=== PATIENT | female | born 1950 | race Caucasian/White ===

== ENCOUNTER → 2018-10-08 09:34 | Outpatient (CLI) | payer MEDICARE, OTHER, SELFPAY ==
--- NOTE | 2018-10-08 09:42 | CT_ITS ---
CT abdomen pelvis wo con CLINICAL HISTORY: Anterior abdominal pain TECHNIQUE: Axial images obtained with sagittal and coronal reformats. All CT scans at the facility use one or more dose reduction, viz: automated exposure control, ma/kV adjustment per patient size (including targeted exams where dose is matched to indication, i.e. head), or iterative reconstruction technique. COMPARISON: CT scan abdomen pelvis with IV and oral contrast 03/06/2013 PROCEDURE: Oral Contrast:None IV Contrast: 0 ml IV Isovue 370 was injected intravenously. FINDINGS: Lung bases: Clear, there is no pleural fluid. There is mild generalized cardiomegaly ABDOMEN: Liver: No masses or biliary dilatation. Gallbladder: Postcholecystectomy Pancreas: No masses or peripancreatic fluid collections. Spleen: Normal size, there are few scattered tiny calcifications noted. Adrenals: Unremarkable Kidneys/ureters: No masses. No renal calculi. No hydronephrosis. No perinephric fluid collections. No ureteral dilatation or obvious ureteral calculi. Stomach bowel: The stomach and small bowel appear grossly normal. There is a moderately large amount stool in the cecum ascending colon and transverse colon. Peritoneum: No abnormal fluid collections. No obvious inflammatory changes. Lymph nodes: No enlarged lymph nodes apparent. Vasculature: No evidence of abdominal aortic aneurysm. No retroperitoneal hemorrhage evident. Bones: There are moderate degenerative changes lower thoracic spine and prominent hypertrophic facet changes lower lumbar spine. PELVIS: Reproductive: Post hysterectomy Bladder: Moderately distended with urine and appearing normal. There is no free fluid in the pelvis. Appendix: I do not definitely identify the appendix but there are no pericecal inflammatory changes. IMPRESSION: Moderately large amount of right-sided stool, no other significant abdominal or pelvic pathology identified.
[2018-10-08 09:58] LABS: Basophils % 0.5 % (0.1-2.0); Eosinophils # 0.2 K/mm3 (0.0-0.4); Eosinophils % 2.3 % (0.1-12.0); Hematocrit 45.7 % (37.0-47.0); Hemoglobin 14.6 g/dL (12.2-16.2); Lymphocytes # 2.2 K/mm3 (0.7-4.5); Lymphocytes % 32.4 % (10-50); Mean Corpuscular Hemoglobin 27.6 pg (27.0-31.2); Mean Corpuscular Volume 86.4 fl (81-99); Mean Platelet Volume 7.3 fl (7.4-10.4); Monocytes # 0.4 K/mm3 (0.1-1.0); Neutrophils % 58.9 % (37.0-80.0); Platelet Count 236 K/mm3 (142-424); Red Blood Count 5.29 M/mm3 (4.20-5.40); Red Cell Distribution Width 12.5 % (11.5-17.5); White Blood Count 6.8 K/mm3 (4.8-10.8)
[2018-10-08 10:31] LABS: Blood Urea Nitrogen 18 mg/dL (7-18); Carbon Dioxide 32 mmol/L (21.0-32.0); Chloride 103 mmol/L (98-107); Creatinine,Serum 0.94 mg/dL (0.55-1.02); Estimated Glomerular Filt Rate 60 ml/min (>60); GFR (African American) 72 ML/MIN (>60); Glucose 97 mg/dL (74-106); Sodium 140 mmol/L (136-145)
== END ==
PROVIDERS: PCP Internal Medicine; Visit Provider Internal Medicine
DX: R10.9 Unspecified abdominal pain (principal)
CPT/HCPCS: 74176; 80048; 85025

== ENCOUNTER 2019-03-12 09:53 | Day surgery (SDC) | payer MEDICARE, OTHER, SELFPAY ==
[2019-03-11 16:25] VITALS: BMI 30.7
[2019-03-12] VITALS (7 sets, daily range): BP systolic 93–117; BP diastolic 58–76; PULSE 53–69; RESP 16–18; TEMP 36.4–36.6; O2SAT 94–99
--- NOTE | 2019-03-12 11:13 | HMH.ANESCL ---
[facility] Anesthesia Checklist - Patient Identification Patient Identification: Arm Band, Verbal (Name & ) - Structural Data Admitted From: Home Planned Operative Procedure/s: Colonoscopy Consent for Planned Operative Procedure(s) Verified: Yes Verified Documents: Surgical Consent, History and Physical - NPO Status Verified Time NPO: 00:00 - Additional verifications Patient : No Anesthesia Reactions: Yes (PONV) - Airway Assessment C-Spine Mobility Assessed: Yes TMJ Mobility Assessed: Yes Dentition: Partials (lower) - Neurological Assessment Level of Consciousness: Awake, Alert, Appropriate, Follows Commands Hx Seizures: No Numbness or tingling in extremities: No - Anesthesia Plan Anesthesia Risk discussed: Yes Anesthesia Plan: Verified ASA Class: II Anesthesia Type: MAC [facility] History I have reviewed the patient's past medical history: Yes Medical History: Reports:: Gastroesophageal Reflux Disease(GERD), Hyperlipidemia, Hypertension Denies:: Diabetes Mellitus Type 1, Diabetes Mellitus Type 2, Internal Pacemaker, Lung Disease, Seizures *Have you ever received a pneumonia vaccine?: No *Have you received a flu vaccine this season?: No (NA) Other Medical History: Reports: Hypothyroidism Comment:: obesity, melanoma Other Surgeries: Yes: Cholecystectomy, Colonoscopy, Hernia Repair, Hysterectomy-Total, Other. No: Pacemaker Amputation: No Fractures: No - *Social History Smoking Status: Never smoker Alcohol Intake: never Substance Use Type: denies use *Occupational Status:: employed *Travel in the last 8 weeks: None (NA) Family Hx:: Other (NA)
--- NOTE | 2019-03-12 12:12 | HMH.SCOPE ---
- Procedure: Date: 03/12/19 Procedure Performed:: Total colonoscopy with multiple polypectomy by snare and biopsy forceps Indications:: Patient is a pleasant 68-year-old white female. I had performed initial screening colonoscopy on her in 2016 and she had at least one tubular adenoma. She does have a vague family history of colon cancer with her paternal aunt having colon cancer. She is without complaints of her symptoms at this time. Performing Provider:: Rex Paz MD Referring Provider:: None Sedation:: Propofol Procedure:: Consent was obtained and patient was taken to endoscopy procedure room. She was positioned in lateral decubitus position. Adequate intravenous sedation was achieved with anesthesia titration of propofol. Variable stiffness Olympus colonoscope was inserted via the anus and advanced to the cecum. Advancement into the cecum was somewhat difficult due to some floppiness and redundancy of the sigmoid colon. Ultimately the ileocecal valve and appendiceal orifice were identified. Within the cecum there was a small diminutive polyp which required retroflexion for visualization. This was removed using cold cutting snare and cold biopsy forceps. There is a tiny diminutive polyp (possible) in the periappendiceal location removed with cold biopsy forceps. Colonoscope was withdrawn through the colon. In the ascending colon there was a subtle polyp removed. The distal transverse colon there was a subtle polyp possibly consistent with lymphoid lesion which was removed with cold snare. However, distal to this there was what appeared to be an adenomatous polyp removed with cold cutting snare. In the rectosigmoid region there were several hyperplastic appearing polyps which were removed with cold biopsy forceps. There is a single polyp within the rectum which appeared to be likely hyperplastic removed with cold biopsy forceps. Retroflexion revealed nonpathologic internal hemorrhoids. Colonoscope was withdrawn. Findings:: Polyps Recommendations:: Likely repeat colonoscopy 3 years Complications:: None Estimated blood obtained (mL): 3
== END 2019-03-12 12:55 | disposition home or self-care (01) ==
LOC: OUTP 09:57
PROVIDERS: PCP Internal Medicine; Visit Provider Surgery
PROC: 0DJD8ZZ Inspection of Lower Intestinal Tract, Via Natural or Artificial Opening Endoscopic (ICD-10-PCS; principal; 2019-03-12 11:00)
DX: Z12.11 Encounter for screening for malignant neoplasm of colon (principal); Z87.19 Personal history of other diseases of the digestive system; K63.5 Polyp of colon
CPT/HCPCS: 45380; 45385; 88305

== ENCOUNTER → 2019-06-18 07:59 | Outpatient (POV) | payer MEDICARE, OTHER, SELFPAY | PROVIDERS: Visit Provider Dermatology | DX: Z00.00 Encounter for general adult medical examination without abnormal findings (principal) ==

== ENCOUNTER → 2019-09-18 13:14 | Outpatient (POV) | payer MEDICARE, OTHER, SELFPAY | DX: Z00.00 Encounter for general adult medical examination without abnormal findings (principal) ==

== ENCOUNTER 2020-06-12 14:44 | Emergency (ER) | payer MEDICARE, OTHER, SELFPAY ==
--- NOTE | 2020-06-12 14:50 | XR_ITS ---
PROCEDURE: XR KNEE LT 3V CLINICAL INDICATION: PAIN COMPARISON: No exams were available for comparison FINDINGS: No fracture or dislocation. No lytic or blastic change. There is normal mineralization. The joint spaces are well-preserved. No significant degenerative/arthritic changes. No erosive changes evident. Other findings:None. IMPRESSION: No acute findings. Dictated by: Doc Izaguirre MD 06/12/2020 15:45 Doc Izaguirre MD in [place] 06/12/2020 15:45
[2020-06-12 14:57] VITALS: BP 134/72; PULSE 72; RESP 20; O2SAT 98; BMI 33.4
--- NOTE | 2020-06-12 15:07 | HMH.EDUTC ---
[facility] [place] Disposition Clinical Impression: Right knee sprain Qualifiers: Encounter type: initial encounter Involved ligament of knee: unspecified ligament Qualified Code(s): S83.91XA - Sprain of unspecified site of right knee, initial encounter Disposition: Home, Self-Care Condition on Discharge: Good Instructions: DI for Knee Sprain, Knee Sprain, How to Use a Knee Immobilizer, How to Choose and Use a Walker, How To Perform RICE (Rest, Ice, Compress, Elevate) Additional Instructions: *weight bearing as tolerated use walker/crutches for ambulation and walking *RICE, Rest the extremity, Ice 15-20 minutes 3-4 times daily, Compress- wear the channing wrap as discussed as much as possible to help reduce swelling and pain, Elevate the extremity when at rest *Channing wrap is for support and help control swelling, use it except in the shower. Be sure that is not to tight but not to loose either *Elevate when resting *Ibuprofen every 6-8 hours as needed for pain an inflammation. If need something more can take Tylenol in between doses of Ibuprofen to help Immediately follow up with your family doctor for new or worsening of symptoms, or no noticeable improvement over the next 3-[address] Epstein office for appointment for further evaluation and treatment of knee sprain/pain Return if needed Straight to ER If any life threatening symptoms Referrals: Jesus Pollack [Primary Care Provider] - As needed Nighat Epstein MD [Physician] - As needed (Call office for appointment) Time of Disposition: 15:51 Medical Decision Making - Byron Inquiry Pt receiving controlled substance: No Byron was queried for this patient: No Vital Signs: 06/12/20 14:57 Pulse Rate [Right Brachial] 72 Respiratory Rate 20 Blood Pressure [Right Arm] 134/72 Blood Pressure Mean [Right Arm] 92 Blood Pressure Source [Right Arm] Automatic Cuff Blood Pressure Position [Right Arm] Sitting 02 Sat by Pulse Oximetry 98 Oxygen Delivery Method Room Air Orders (Tests/Meds): ORDERS Category Date Time Status XR knee LT 3V Stat Exams 06/12/20 14:50 Taken - Radiology Data #1 Image(s): Knee Image Reviewed: Yes I reviewed the patient's radiology image Preliminary Findings: No Fracture Seen [facility] [place] HPI - General Stated complaint: AO [id number] left knee home accident Time Seen by Provider: 06/12/20 15:07 Mode of Arrival: Ambulatory Source of Information: Patient Limitations: No Limitations Description of Symptoms (Recalled from Triage Doc. by RN): PATIENT C/O POSTERIOR LEFT KNEE PAIN. SHE STATES SHE HAS BEEN HAVING SOME PAIN IN THAT KNEE, HOWEVER IT BECAME WORSE TODAY WHILE WALKING DOWN STEPS HEENT Symptoms (Recalled from RN notes): No Resp Symptoms (Recalled from RN notes): No Skin Symptoms (Recalled from RN notes): No MS Symptoms (Recalled from RN notes): Yes Functional Status (Recalled from RN notes): WNL - History of Present Illness Provider Complaint: Patient states that she has been having some pain on and off in her left knee area and feeling like it is catching at times on and off for the last week States that she was walking down the steps earlier and felt like something tore or give out States that ever since when she walks she feels like her knee is going to give out and hurts when she puts her weight down on it Denies known injury - Related Data Home Medications Medication Instructions Recorded Confirmed levothyroxine 88 mcg capsule 88 mcg PO DAILY 02/01/19 06/12/20 omeprazole 20 mg capsule,delayed 20 mg PO DAILY 02/01/19 06/12/20 release potassium chloride 10 mEq 10 meq PO DAILY 02/01/19 06/12/20 capsule,extended release quinapril 40 mg tablet 40 mg PO DAILY 02/01/19 06/12/20 triamterene 37.5 1 tab PO DAILYP PRN 02/01/19 06/12/20 mg-hydrochlorothiazide 25 mg tablet Allergies Allergy/AdvReac Type Severity Reaction Status Date / Time apple [APPLE] Allergy Unknown HIVES, Verified 03/29/19 10:32 RESP. banana [BANANA] Aller
[2020-06-12 16:04] VITALS: BP 134/72; PULSE 72; RESP 20; TEMP 36.7; O2SAT 98
== END 2020-06-12 16:06 | disposition home or self-care (01) ==
PROVIDERS: Emergency Provider Nurse Practitioner; PCP Internal Medicine
DX: S83.92XA Sprain of unspecified site of left knee, initial encounter (principal); K21.9 Gastro-esophageal reflux disease without esophagitis; X50.1XXA Overexertion from prolonged static or awkward postures, initial encounter; Y92.019 Unspecified place in single-family (private) house as the place of occurrence of the external cause; E78.5 Hyperlipidemia, unspecified; I10 Essential (primary) hypertension; E03.9 Hypothyroidism, unspecified; Z88.2 Allergy status to sulfonamides
CPT/HCPCS: 29505; G0463; 73562; 99202

== ENCOUNTER 2020-09-17 09:30 | Outpatient (RCR) | payer MEDICARE, OTHER, SELFPAY | END 2020-09-17 09:35 | disposition home or self-care (01) | LOC: PT 09:30 | PROVIDERS: PCP Internal Medicine; Visit Provider Orthopaedic Surgery | DX: M25.562 Pain in left knee (principal); Z96.652 Presence of left artificial knee joint | CPT/HCPCS: 97010; 97014; 97016; 97110; 97140; 97163; 97164; 97530; G0283 ==

== ENCOUNTER → 2021-01-11 12:10 | Outpatient (CLI) | payer MEDICARE, OTHER, SELFPAY ==
--- NOTE | 2021-01-11 12:22 | CT_ITS ---
PROCEDURE: CT HEAD/BRAIN WO/W CON CLINICAL INDICATION: VISUAL CHANGES,VERTIGO COMPARISON: No exams were available for comparison TECHNIQUE: IV Contrast: 100ML Isovue 370 Axial images obtained. All CT scans at the facility use one or more dose reduction, viz: automated exposure control, ma/kV adjustment per patient size (including targeted exams where dose is matched to indication, i.e. head), or iterative reconstruction technique. FINDINGS: No midline shift, mass effect, intracranial hemorrhage, hydrocephalus, or extra-axial fluid collection is evident. No enhancing lesion is evident. The calvarium has an unremarkable appearance. No mastoid effusion. No sinus air-fluid level. There is leftward nasal septal deviation. There is a nonspecific 5 mm calcific density within the right nasal canal anteriorly. This could be related to a foreign body or calcification of the turbinates. Direct visualization may provide further evaluation. IMPRESSION: 1. No acute intracranial findings. 2. Foreign body versus soft tissue calcification in the right nasal canal anteriorly Dictated by: Doc Izaguirre MD 01/11/2021 13:31 Doc Izaguirre MD in [facility] 01/11/2021 13:31
[2021-01-11 12:40] LABS: Blood Urea Nitrogen 14 mg/dl (7-17); Estimated Glomerular Filt Rate 55 ml/min (>60); GFR (African American) 67 ML/MIN (>60)
== END ==
PROVIDERS: Visit Provider Internal Medicine
DX: R42 Dizziness and giddiness (principal); H53.9 Unspecified visual disturbance
CPT/HCPCS: 36415; 70470; 82565; 84520; Q9967

== ENCOUNTER → 2021-01-18 08:42 | Outpatient (CLI) | payer MEDICARE, OTHER, SELFPAY ==
--- NOTE | 2021-01-18 | CA_ITS ---
APPROVED REPORT [employer] Manager: RFAAEL Laterality: Bilateral Study Quality: Excellent Risk Factors Hypertension: Hyperlipidemia spontaneous visual disturbance of tunnel vision with near syncope, resolved immediately Medications Aspirin Doppler Spectral Velocity Analysis ECA (R) 95.10/12.90 cm/s ECA (L) 86.00/17.20 cm/s dICA (R) 67.70/27.40 cm/s dICA (L) 74.10/30.70 cm/s Riya (R) 65.10/25.70 cm/s Riya (L) 53.90/21.00 cm/s pICA (R) 62.50/24.80 cm/s pICA (L) 68.80/18.70 cm/s dCCA (R) 81.40/24.00 cm/s dCCA (L) 82.30/23.10 cm/s pCCA (R) 85.70/17.30 cm/s pCCA (L) 86.50/21.40 cm/s Vert (R) 32.70/11.60 cm/s Vert (L) 35.30/14.10 cm/s ICA/CCA 0.82 ICA/CCA 0.90 Findings Duplex evaluation demonstrates antegrade flow of the bilateral Vertebral Arteries. Duplex evaluation demonstrates stenosis of the right proximal internal carotid artery <20% with PSV <140 cm/sec, EDV <100 cm/sec, and IC/CC Ratio <4.0. Duplex evaluation demonstrates stenosis of the left proximal internal carotid artery <20% with PSV <140 cm/sec, EDV <100 cm/sec, and IC/CC Ratio <4.0. Conclusion Duplex evaluation demonstrates antegrade flow of the bilateral Vertebral Arteries. Duplex evaluation demonstrates stenosis of the right proximal internal carotid artery <20% with PSV <140 cm/sec, EDV <100 cm/sec, and IC/CC Ratio <4.0. Duplex evaluation demonstrates stenosis of the left proximal internal carotid artery <20% with PSV <140 cm/sec, EDV <100 cm/sec, and IC/CC Ratio <4.0. Electronically signed by : Doc Izaguirre MD 01/18/2021 15:55:13
== END ==
PROVIDERS: PCP Internal Medicine; Visit Provider Internal Medicine
DX: R42 Dizziness and giddiness (principal)
CPT/HCPCS: 93880

== ENCOUNTER → 2021-03-02 07:42 | Outpatient (CLI) | payer MEDICARE, OTHER, SELFPAY ==
--- NOTE | 2021-03-02 07:43 | CA_ITS ---
APPROVED REPORT EXAM: Comprehensive 2D, Doppler, and color-flow Echocardiogram Program Aide Group Work: Annia Morales, MATILDA, RVS Ht: 5 ft 5 in Wt: 214lbs BSA: 2.04 BP: 110/68 mmHg Indications: headaches, dizziness, HTN, HLD, Family hx-cad, TIA 2D Dimensions Aortic Root 2.92 cm LA Volume 37.60 mL Left Atrium 3.45 cm LA Volume Index 18.40 mL/m2 (M/F) 16-34 LVOT 1.92 cm (M/F) 1.5-2.5 M-Mode Dimensions RVDd 3.31 cm (0.9-2.6) LA Diam 3.32 cm (1.9-4.0) LVDd 5.09 cm (3.5-5.7) Ao Diam 3.09 cm (2.0-3.7) LVDs 3.12 cm (3.5-5.7) IVSd 1.03 cm (0.6-1.1) PWd 0.87 cm (0.6-1.1) EF (Teich) 68.80% EPSs 0.84 cm FS 38.70% EDV (Teich) 123.20 mL TAPSE 2.02 (<1.7) ESV (Teich) 38.50 mL LV Diastology E Decel Time 310.00 (160-240 msec) E/A Ratio 0.63 MED E' 8.60 (< 7 cm/sec) MED A' 11.60 cm/s E'/MED E' Ratio 6.07 (>14) LAT E' 8.70 (<10 cm/sec) LAT A' 8.20 cm/s E/LAT E' Ratio 6.00 (>14) Aortic Valve LVOT Max 107.00 (70-110 cm/s) LVOT VTI 22.09 cm AoV Peak Jaime. 162.00 (50-130 cm/s) AI PHT 495.00 ms AO Peak GR. 10.50 mmHg AO Mean GR. 5.90 (<5 mmHg) AO VTI 35.14 (18-25 cm) BAKARI (VTI) 1.82 (2.5-4.5 cm2) Mitral Valve MV A Velocity 83.00 (40-130 cm/s) E/A Ratio 0.63 MV Decel. Time 310.00 (160-240 ms) Pulmonary Valve PV Peak Velocity 78.00 (50-150 cm/s) Tricuspid Valve TR P. Velocity 216.00 cm/s RAP Estimate 10.00 mmHg RVSP 28.60 mmHg Left Ventricle Left atrium is mildly enlarged, left ventricle is normal size, mild concentric left ventricular hypertrophy, visually estimated ejection fraction 55% with no regional wall motion abnormality, grade 1 diastolic dysfunction seen without tissue Doppler evidence of raise left atrial pressure. Right Ventricle Right atrium and right ventricle are normal size and contractility. Aortic Valve Aortic valve is minimally thickened and fibrosed, there is no aortic stenosis, there is trace aortic insufficiency. Mitral Valve Mitral valve is grossly normal, there is trace mitral regurgitation. Tricuspid Valve Tricuspid grossly normal, there is trace tricuspid regurgitation, tricuspid regurgitation jet velocity is inadequate for calculation of the right ventricular systolic pressure. Pulmonic Valve Pulmonic valve is poorly visualized. Great Vessels Aortic root is normal size. Pericardium No significant pericardial effusion noted. Conclusion 1. Mildly low left atrium, normal left ventricular size, mild concentric left ventricular hypertrophy, visually estimated ejection fraction 55% with no regional wall motion abnormality, grade 1 diastolic dysfunction seen without tissue Doppler evidence of raise left atrial pressure. 2. Minimally thickened and calcified aortic valve without aortic stenosis, there is trace aortic insufficiency. 3. Trace mitral and tricuspid regurgitation. 4. No significant pericardial effusion noted. Electronically signed by : German Martin, 03/02/2021 19:09:00
--- NOTE | 2021-03-02 07:49 | MR_ITS ---
PROCEDURE: MR HEAD/BRAIN WO CON CLINICAL INDICATION: visual disturbance with unilateral ALEXANDRA Nausea. 2 episodes in 2 months. Hx migraines. COMPARISON: CT CT HEAD/BRAIN WO/W CON from 01/11/2021 TECHNIQUE: Routine multiplanar multi echo sequences are performed without gadolinium enhancement. FINDINGS: No midline shift, mass effect, intracranial hemorrhage, or hydrocephalus is evident. No evidence of acute infarction. No restricted diffusion. The cerebellopontine angles, cerebellum, and brainstem have an unremarkable appearance. The pituitary, optic chiasm, corpus callosum, the and craniocervical junction are unremarkable. There is a small T2 hyperintensity in the right frontal parietal junction nonspecific measuring approximately 5 mm. This does not restricted diffusion. The hippocampal gyri and temporal horns are symmetric. No mastoid effusion or sinus air-fluid level. IMPRESSION: No acute intracranial findings. Nonspecific small T2 white matter hyperintensity in the right frontal parietal junction which could be due to small gliotic focus from microangiopathic changes. Dictated by: Doc Izaguirre MD 03/03/2021 11:42 Doc Izaguirre MD in [place] 03/03/2021 11:42
--- NOTE | 2021-03-02 07:49 | MR_ITS ---
PROCEDURE: MR ANGIO HEAD WO CON CLINICAL INDICATION: visual dist with headache Nausea. 2 episodes in 2 months. Hx migraines. COMPARISON: No exams were available for comparison TECHNIQUE: 3D [id number] images obtained without contrast with multi slab reformats FINDINGS: No aneurysm, AVM, or major intracranial occlusive process apparent. Single-shot MRV shows no obvious sagittal sinus thrombosis. IMPRESSION: Negative MRA of brain Dictated by: Doc Izaguirre MD 03/03/2021 11:46 Doc Izaguirre MD in [place] 03/03/2021 11:46
== END ==
PROVIDERS: PCP Internal Medicine; Visit Provider Specialist
DX: H53.9 Unspecified visual disturbance (principal); R51.9 Headache, unspecified; E78.5 Hyperlipidemia, unspecified; Z82.49 Family history of ischemic heart disease and other diseases of the circulatory system; I10 Essential (primary) hypertension; R60.0 Localized edema
CPT/HCPCS: 70544; 70551; 93306

== ENCOUNTER → 2021-03-22 12:10 | Outpatient (CLI) | payer MEDICARE, OTHER, SELFPAY ==
--- NOTE | 2021-03-22 | ECG_ITS ---
APPROVED REPORT Exam: Resting ECG HR:57 bpm ECG Measurements Heart Rate 57 AXES NY 164 P 65 QRSd 80 QRS -41 QT 422 T -11 QTc 410 Conclusion Sinus bradycardia Left axis deviation Low voltage QRS Late r wave progression - unchanged Abnormal ECG Electronically signed by : Esteban Adame, 03/23/2021 08:19:22
== END ==
PROVIDERS: PCP Internal Medicine; Visit Provider Nurse Practitioner Family
DX: R51.9 Headache, unspecified (principal); H53.9 Unspecified visual disturbance
CPT/HCPCS: 93005; 93225; 93226

== ENCOUNTER → 2021-04-30 14:11 | Outpatient (CLI) | payer MEDICARE, OTHER, SELFPAY ==
--- NOTE | 2021-04-30 14:17 | XR_ITS ---
PROCEDURE INFORMATION: Exam: XR Lumbosacral Spine Exam date and time: 04/30/2021 2:17 PM Age: 70 years old Clinical indication: Patient HX: Low back pain with RT hip sciatica TECHNIQUE: Imaging protocol: XR of the lumbosacral spine. Views: 4 or 5 views. COMPARISON: ABDPELWO CT abdomen pelvis wo con 10/08/2018 10:13 AM FINDINGS: Bones/joints: There is loss of disc space height at L5-S1. There is facet joint hypertrophy in the lower lumbar spine. There is no subluxation or fracture. Soft tissues: Right upper quadrant surgical clips. IMPRESSION: 1. Degenerative changes. If radicular symptoms persist, a follow-up nonemergent MRI should be performed. 2. There is no subluxation or fracture.
--- NOTE | 2021-04-30 14:17 | XR_ITS ---
PROCEDURE INFORMATION: Exam: XR Pelvis Exam date and time: 04/30/2021 2:17 PM Age: 70 years old Clinical indication: Hip pain; Right hip; Additional info: Low back pain, sciatica RT, bilateral hip pain TECHNIQUE: Imaging protocol: XR pelvis. Views: 1 or 2 view. COMPARISON: ABDPELWO CT abdomen pelvis wo con 10/08/2018 10:13 AM FINDINGS: Bones/joints: There is mild loss of articular cartilage in the hips bilaterally where there are marginal osteophytes. There also degenerative changes of the sacroiliac joints. There is no acute fracture. Soft tissues: There are surgical clips in the right proximal thigh. IMPRESSION: No fracture.
== END ==
PROVIDERS: PCP Internal Medicine; Visit Provider Internal Medicine
DX: M54.5 Low back pain (principal); M54.31 Sciatica, right side; M25.552 Pain in left hip; M25.551 Pain in right hip
CPT/HCPCS: 72110; 72170

== ENCOUNTER → 2021-06-18 08:44 | Outpatient (CLI) | payer MEDICARE, OTHER, SELFPAY ==
--- NOTE | 2021-06-18 09:05 | ECG_ITS ---
APPROVED REPORT Exam: Resting ECG HR:58 bpm ECG Measurements Heart Rate 58 AXES OK 162 P 21 QRSd 84 QRS -25 QT 424 T -10 QTc [address] & T wave abnormality, consider anterolateral ischemia Abnormal ECG Electronically signed by : Esteban Adame MD 06/18/2021 10:54:16
[2021-06-18 09:20] LABS: Basophils % 0.6 % (0.1-2.0); Eosinophils # 0.1 K/mm3 (0.0-0.4); Eosinophils % 1.6 % (0.1-12.0); Hematocrit 46.4 % (37.0-47.0); Lymphocytes # 2.4 K/mm3 (0.7-4.5); Lymphocytes % 31.7 % (10-50); Mean Corpuscular HGB Conc 32.3 g/dL (31.8-35.4); Mean Corpuscular Hemoglobin 28.6 pg (27.0-31.2); Mean Corpuscular Volume 88.6 fl (81-99); Mean Platelet Volume 6.9 fl (7.4-10.4); Monocytes # 0.4 K/mm3 (0.1-1.0); Monocytes % 5.8 % (1.7-9.3); Neutrophils # 4.6 K/mm3 (1.8-7.8); Neutrophils % 60.3 % (37.0-80.0); Platelet Count 249 K/mm3 (142-424); Red Blood Count 5.23 M/mm3 (4.20-5.40); Red Cell Distribution Width 12.6 % (11.5-17.5); White Blood Count 7.6 K/mm3 (4.8-10.8)
[2021-06-18 10:29] LABS: Chloride 101 mmol/L (98-107)
[2021-06-18 10:30] LABS: Potassium 4.1 mmoL/L (3.5-5.1); Sodium 141 mmol/L (136-145)
[2021-06-18 10:32] LABS: Blood Urea Nitrogen 14 mg/dl (7-17); Estimated Glomerular Filt Rate 62 ml/min (>60); GFR (African American) 75 ML/MIN (>60)
[2021-06-18 10:33] LABS: Anion Gap 12.1 mEq/L (5-15); Calcium 9.3 mg/dl (8.4-10.2); Carbon Dioxide 32 mmol/L (22.0-30.0); Glucose 99 mg/dl (74-100)
== END ==
PROVIDERS: Visit Provider Orthopaedic Surgery
DX: Z01.818 Encounter for other preprocedural examination (principal)
CPT/HCPCS: 36415; 80048; 85025; 93005

== ENCOUNTER → 2021-09-21 16:34 | Outpatient (CLI) | payer MEDICARE, OTHER, SELFPAY ==
[2021-09-21 17:02] LABS: Basophils % 0.4 % (0.1-2.0); Eosinophils # 0.2 K/mm3 (0.0-0.4); Eosinophils % 2.4 % (0.1-12.0); Hematocrit 43.3 % (37.0-47.0); Hemoglobin 14.1 g/dL (12.2-16.2); Lymphocytes # 2.1 K/mm3 (0.7-4.5); Lymphocytes % 30.9 % (10-50); Mean Corpuscular HGB Conc 32.7 g/dL (31.8-35.4); Mean Corpuscular Hemoglobin 28.4 pg (27.0-31.2); Mean Platelet Volume 8.7 fl (7.4-10.4); Monocytes # 0.4 K/mm3 (0.1-1.0); Monocytes % 5.9 % (1.7-9.3); Neutrophils # 4.1 K/mm3 (1.8-7.8); Neutrophils % 60.5 % (37.0-80.0); Platelet Count 274 K/mm3 (142-424); Red Blood Count 4.97 M/mm3 (4.20-5.40); Red Cell Distribution Width 12.4 % (11.5-17.5); White Blood Count 6.8 K/mm3 (4.8-10.8)
[2021-09-21 18:21] LABS: Alanine Aminotransferase 21 U/L (12-78); Albumin Level 3.7 g/dl (3.5-5.0); Albumin/Globulin Ratio 1.3 (1.1-1.8); Alkaline Phosphatase 123 U/L (38-126); Anion Gap 7.9 mEq/L (5-15); Aspartate Amino Transferase 27 U/L (14-36); Bilirubin,Total 0.6 mg/dl (0.2-1.3); Blood Urea Nitrogen 14 mg/dl (7-17); Calcium 8.9 mg/dl (8.4-10.2); Carbon Dioxide 34 mmol/L (22.0-30.0); Chloride 99 mmol/L (98-107); Chol/HDL Ratio 2.6 (1-3.5); Cholesterol 137 mg/dl (140-200); Estimated Glomerular Filt Rate 62 ml/min (>60); GFR (African American) 75 ML/MIN (>60); Globulin 2.8 g/dL (1.3-3.2); Glucose 92 mg/dl (74-100); HDL Cholesterol 53 mg/dl (40-60); Potassium 3.9 mmoL/L (3.5-5.1); Sodium 137 mmol/L (136-145); Total Protein,Serum 6.5 g/dl (6.3-8.2); Triglycerides 81 mg/dl (30-150); VLDL Cholesterol 16 mg/dL (0-40)
[2021-09-21 18:32] LABS: Direct LDL Cholesterol 71.21 mg/dL (100-129)
[2021-09-21 19:09] LABS: Hemoglobin A1C 5.8 % (4.0-6.0)
== END ==
PROVIDERS: Visit Provider Internal Medicine
DX: E03.9 Hypothyroidism, unspecified (principal); E11.9 Type 2 diabetes mellitus without complications; I10 Essential (primary) hypertension; E78.5 Hyperlipidemia, unspecified; M47.812 Spondylosis without myelopathy or radiculopathy, cervical region; Z85.820 Personal history of malignant melanoma of skin
CPT/HCPCS: 80053; 80061; 83036; 85025

== ENCOUNTER 2022-01-12 10:00 | Outpatient (RCR) | payer MEDICARE, OTHER, SELFPAY | END 2022-01-12 10:05 | disposition home or self-care (01) | LOC: PT 10:00 | PROVIDERS: PCP Internal Medicine; Visit Provider Internal Medicine | DX: H81.13 Benign paroxysmal vertigo, bilateral (principal) | CPT/HCPCS: 97110; 97163; 97535 ==

== ENCOUNTER 2022-02-21 10:51 | Emergency (ER) | payer MEDICARE, OTHER, SELFPAY ==
--- NOTE | 2022-02-21 11:15 | HMH.EDUTC ---
[facility] [place] Disposition Clinical Impression: Exposure to COVID-19 virus Disposition: Home, Self-Care Condition on Discharge: Good Instructions: Preventing the Spread of Coronavirus Discharge Instructions, DI for COVID-19 (Suspected or Confirmed ) Additional Instructions: Drink plenty of fluids. Take tylenol for pain or fever. Return if you begin to have difficulty breathing. Follow up with your regular doctor. GO TO THE ER FOR ANY WORSENING SYMPTOMS Quarantine until you know the results of your covid-19 test. If it is positive, the health department should call you and give you further instructions about your length of Quarantine and other things. Notify your school or workplace of your results and follow their instructions regarding return to work/school. Referrals: Jesus Pollack MD [Primary Care Provider] - Time of Disposition: 11:27 Medical Decision Making - Medical Records Medical records reviewed: No: I reviewed the patient's medical records. - Byron Inquiry Pt receiving controlled substance: No - Lab Data Lab results reviewed: Yes: I reviewed the patient's lab results. [facility] [place] HPI - General Stated complaint: covid test Time Seen by Provider: 02/21/22 11:15 - History of Present Illness Provider Complaint: Her son-in-law tested + for covid-19 yesterday. She has been around him a lot over the past 1 week. She denies any symptoms. - Related Data Home Medications Medication Instructions Recorded Confirmed levothyroxine 88 mcg capsule 88 mcg PO DAILY 02/01/19 04/13/21 omeprazole 20 mg capsule,delayed 20 mg PO DAILY 02/01/19 04/13/21 release potassium chloride 10 mEq 10 meq PO DAILY 02/01/19 04/13/21 capsule,extended release quinapril 40 mg tablet 40 mg PO DAILY 02/01/19 04/13/21 triamterene 37.5 1 tab PO DAILYP PRN 02/01/19 04/13/21 mg-hydrochlorothiazide 25 mg tablet aspirin 81 mg tablet,delayed 81 mg PO DAILY 02/22/21 04/13/21 release atorvastatin 20 mg tablet 20 mg PO HS 02/22/21 04/13/21 Previous Rx's Medication Instructions Recorded diazepam 5 mg tablet 5 mg PO HS PRN #2 tab 02/22/21 Allergies Allergy/AdvReac Type Severity Reaction Status Date / Time apple [APPLE] Allergy Unknown HIVES, Verified 04/13/21 10:32 RESP. banana [BANANA] Allergy Unknown I-HIVES,RES Verified 04/13/21 10:32 P pineapple [PINEAPPLE] Allergy Unknown I-HIVES,RES Verified 04/13/21 10:32 P. Sulfa (Sulfonamide Allergy Unknown NA-NAUSEA/V Verified 04/13/21 10:32 Antibiotics) OMITING [SULFA (SULFONAMIDE ANTIBIOTICS)] walnut [WALNUT] Allergy Unknown I-HIVES,RES Verified 04/13/21 10:32 P. COCONUT Allergy Unknown I-HIVES, Uncoded 03/29/19 10:32 RESP OATMEAL Allergy Unknown I-HIVES,RES Uncoded 03/29/19 10:32 P PECAN Allergy Unknown I-HIVES,RES Uncoded 03/29/19 10:32 P H History - Hepatitis A Screen Does patient agree to Hepatitis A vaccine administration?: Yes Attestation statement:: This patient has been screened for Hepatitis A risk factors. Medical History: Reports:: Gastroesophageal Reflux Disease(GERD), Hyperlipidemia, Hypertension Denies:: Diabetes Mellitus Type 1, Diabetes Mellitus Type 2, Internal Pacemaker, Lung Disease, Seizures Other Medical History: Reports: Hypothyroidism, Thyroid Disease Comment: obesity, melanoma Other Surgeries: Yes: Cholecystectomy, Colonoscopy, Hernia Repair, Hysterectomy-Total, Other. No: Pacemaker Amputation: No Fractures: No - Social History Smoking Status: Never smoker Alcohol Intake: never Substance Use Type: denies use Occupational Status: other, retired Housing: house Household Members: spouse Family Hx:: Other ROS Obtained: Yes All systems reviewed & no additional complaints - Constitutional Constitutional: Reports system reviewed and no additional complaints, except as docu - Eyes Eyes: Reports system reviewed and no additional complaints, except as docu - ENT Ears, Nose, Mo
[2022-02-21 11:24] VITALS: BP 132/85; PULSE 60; RESP 18; TEMP 37.1; O2SAT 96; BMI 33.3
[2022-02-21 11:30] VITALS: BP 132/85; PULSE 60; RESP 18; TEMP 37.1
[2022-02-21 12:49] LABS: Adenovirus,PCR Not Detected (NotDetected); Bordetella Pertussis Not Detected (NotDetected); Chlamydophila Pneumoniae, PCR Not Detected (NotDetected); Coronavirus 19, PCR Not Detected (NotDetected); Coronavirus 229E Not Detected (NotDetected); Coronavirus NL63 Not Detected (NotDetected); Coronavirus OC43 Not Detected (NotDetected); Coronovirus HKU1,PCR Not Detected (NotDetected); Human Metapneumovirus Not Detected (NotDetected); Influenza A, PCR Not Detected (NotDetected); Influenza AH1, 2009 Not Detected (NotDetected); Influenza AH1, PCR Not Detected (NotDetected); Influenza AH3,PCR Not Detected (NotDetected); Influenza B, PCR Not Detected (NotDetected); Mycoplasma Pneumoniae, PCR Not Detected (NotDetected); Parainfluenza 1, PCR Not Detected (NotDetected); Parainfluenza 2, PCR Not Detected (NotDetected); Parainfluenza 3, PCR Not Detected (NotDetected); Parainfluenza 4, PCR Not Detected (NotDetected); Respiratory Syncytial Virus Not Detected (NotDetected); Rhinovirus/Enterovirus Not Detected (NotDetected)
== END 2022-02-21 11:32 | disposition home or self-care (01) ==
PROVIDERS: Emergency Provider Nurse Practitioner Family; PCP Internal Medicine
DX: Z03.89 Encounter for observation for other suspected diseases and conditions ruled out (principal); I10 Essential (primary) hypertension; K21.9 Gastro-esophageal reflux disease without esophagitis; E78.5 Hyperlipidemia, unspecified; E03.9 Hypothyroidism, unspecified; E66.9 Obesity, unspecified; Z20.822 Contact with and (suspected) exposure to COVID-19; Z79.52 Long term (current) use of systemic steroids; Z79.899 Other long term (current) drug therapy; Z88.2 Allergy status to sulfonamides; Z91.018 Allergy to other foods; Z85.820 Personal history of malignant melanoma of skin; Z68.33 Body mass index [BMI] 33.0-33.9, adult
CPT/HCPCS: 87581; 87632; 87798; 99213; C9803; G0463; U0003; U0005

== ENCOUNTER → 2022-03-30 12:40 | Outpatient (CLI) | payer MEDICARE, OTHER, SELFPAY ==
[2022-03-30 14:33] LABS: Hemoglobin A1C 5.9 % (4.0-6.0)
[2022-03-30 15:21] LABS: Chloride 105 mmol/L (98-107); Potassium 4.1 mmoL/L (3.5-5.1); Sodium 140 mmol/L (136-145)
[2022-03-30 15:23] LABS: Blood Urea Nitrogen 12 mg/dl (7-17)
[2022-03-30 15:24] LABS: Alanine Aminotransferase 28 U/L (12-78); Albumin Level 3.7 g/dl (3.5-5.0); Albumin/Globulin Ratio 1.3 (1.1-1.8); Alkaline Phosphatase 111 U/L (38-126); Anion Gap 8.1 mEq/L (5-15); Aspartate Amino Transferase 32 U/L (14-36); Bilirubin,Total 0.8 mg/dl (0.2-1.3); Carbon Dioxide 31 mmol/L (22.0-30.0); Cholesterol 131 mg/dl (140-200); Estimated Glomerular Filt Rate 62 ml/min (>60); GFR (African American) 75 ML/MIN (>60); Globulin 2.8 g/dL (1.3-3.2); Glucose 104 mg/dl (74-100); Total Protein,Serum 6.5 g/dl (6.3-8.2); Triglycerides 85 mg/dl (30-150); VLDL Cholesterol 17 mg/dL (0-40)
[2022-03-30 15:25] LABS: Chol/HDL Ratio 2.8 (1-3.5); HDL Cholesterol 46 mg/dl (40-60)
[2022-03-30 15:35] LABS: Direct LDL Cholesterol 63.04 mg/dL (100-129)
[2022-03-30 15:54] LABS: Thyroid Stimulating Hormone 0.94 uIU/mL (0.465-4.68)
== END ==
PROVIDERS: PCP Internal Medicine; Visit Provider Internal Medicine
DX: E03.9 Hypothyroidism, unspecified (principal); E11.9 Type 2 diabetes mellitus without complications; E78.5 Hyperlipidemia, unspecified; I10 Essential (primary) hypertension
CPT/HCPCS: 80053; 80061; 83036; 84443

== ENCOUNTER → 2022-07-05 12:58 | Outpatient (CLI) | payer MEDICARE, OTHER, SELFPAY ==
--- NOTE | 2022-07-05 13:08 | MM_ITS ---
PROCEDURE INFORMATION: Exam: MG Bilateral Screening 3D Mammography Exam date and time: 07/05/2022 1:04 PM Age: 71 years old Clinical indication: Screening examination TECHNIQUE: Imaging protocol: Bilateral Screening tomosynthesis and 2D mammography including computer-aided detection (CAD) when performed. COMPARISON: 1. MG DMDXUR DIG MAMM-DX UNI-RT 11/18/2015 10:50 AM 2. MG DMDXUAVR DIG MAMM-DX UNI ADD VIEWS-RT 11/11/2015 2:25 PM FINDINGS: MAMMOGRAPHY: Breast composition: There are scattered areas of fibroglandular density. Mass: No suspicious masses. Architectural distortion: None. Calcifications: No suspicious calcifications. Asymmetric density: None. Skin thickening: None. Axillary adenopathy: None. IMPRESSION: No mammographic evidence of malignancy. Annual screening is recommended unless otherwise clinically indicated. ASSESSMENT: BI-RADS Category 1: Negative
== END ==
PROVIDERS: PCP Internal Medicine; Visit Provider Internal Medicine
DX: Z12.31 Encounter for screening mammogram for malignant neoplasm of breast (principal)
CPT/HCPCS: 77063; 77067

== ENCOUNTER 2022-09-03 10:36 | Emergency (ER) | payer MEDICARE, OTHER, SELFPAY ==
[2022-09-03 12:40] VITALS: BP 121/76; PULSE 76; RESP 19; TEMP 36.9; O2SAT 98; BMI 34.2
--- NOTE | 2022-09-03 12:45 | EXP.UTC ---
Discharge Plan Disposition Patient Disposition: Home, Self-Care Condition: Good Prescriptions Prescriptions: New benzonatate 100 mg capsule 100 mg PO TID PRN (Reason: cough) Qty: 30 0RF amoxicillin-pot clavulanate 875-125 mg Tablet 1 tab PO Q12H Qty: 20 0RF prednisone 10 mg tablet 10 mg PO BID 5 Days Qty: 10 0RF No Action aspirin [Adult Low Dose Aspirin] 81 mg tablet,delayed release (DR/EC) 81 mg PO DAILY atorvastatin 20 mg tablet 20 mg PO HS diazepam [Valium] 5 mg tablet 5 mg PO HS PRN (Reason: preprocedural anxiety) Qty: 2 0RF Rx Instructions: Take one tablet 30 minutes before MRI, may take second tablet at time of MRI if needed quinapril 40 mg tablet 40 mg PO DAILY potassium chloride 10 mEq capsule, extended release 10 meq PO DAILY levothyroxine 88 mcg capsule 88 mcg PO DAILY triamterene-hydrochlorothiazid 37.5-25 mg tablet 1 tab PO DAILYP PRN (Reason: HYPERTENSION) omeprazole 20 mg capsule,delayed release(DR/EC) 20 mg PO DAILY Referrals Follow up/Referrals: Jesus Pollack MD [Primary Care Provider] - See instructions Activity Restrictions/Add. Instructions Additional Instructions/Restrictions: *Monitor Temp, Over the counter Motrin or Tylenol as directed/as needed Tylenol every 4 hours and Motrin every 6 hours (as long as your family doctor has told you that you can take it) for fever or pain. and straight to ER if unable to lower temp less than 101.0 after medication given *Warm salt water gargles may help to soothe the throat *Throat Lozenges? *Warm fluids like tea with honey may help to soothe the throat? *Sleep elevated *Humidifier/Vaporizer Take medication as prescribed Follow up IMMEDIATELY for new or worsening symptoms or no Noticeable improvement over the next 48-72 hours. 911 for difficulty breathing or swallowing Clinical Impressions Clinical Impression: Sinusitis Instructions Patient Instructions: DI for Sinusitis, Sinusitis Discharge ED Provider: Kat Chavis [facility] General Stated complaint: possible sinus infection Time Seen by Provider: 09/03/22 12:46 History of Present Illness Provider Complaint: Patient states that she has been having sinus pain and pressure, drainage in the back of her throat headache and cough States that today she was feeling worse so she came in to get checked Related Data Home Medications Medication Instructions Recorded Confirmed levothyroxine 88 mcg capsule 88 mcg PO DAILY thyroid 02/01/19 04/13/21 omeprazole 20 mg capsule,delayed 20 mg PO DAILY GERD 02/01/19 04/13/21 release potassium chloride 10 mEq 10 meq PO DAILY Supplement 02/01/19 04/13/21 capsule,extended release quinapril 40 mg tablet 40 mg PO DAILY Hypertension 02/01/19 04/13/21 triamterene 37.5 1 tab PO DAILYP PRN HYPERTENSION 02/01/19 04/13/21 mg-hydrochlorothiazide 25 mg tablet aspirin 81 mg tablet,delayed 81 mg PO DAILY 02/22/21 04/13/21 release (Adult Low Dose Aspirin) atorvastatin 20 mg tablet 20 mg PO HS 02/22/21 04/13/21 Previous Rx's Medication Instructions Recorded diazepam 5 mg tablet (Valium) 5 mg PO HS PRN preprocedural 02/22/21 anxiety #2 tabs amoxicillin 875 mg-potassium 1 tab PO Q12H #20 tabs 09/03/22 clavulanate 125 mg tablet benzonatate 100 mg capsule 100 mg PO TID PRN cough #30 caps 09/03/22 prednisone 10 mg tablet 10 mg PO BID 5 days #10 tabs 09/03/22 Allergies Allergy/AdvReac Type Severity Reaction Status Date / Time apple [APPLE] Allergy Unknown HIVES, Verified 04/13/21 10:32 RESP. banana [BANANA] Allergy Unknown I-HIVES,RES Verified 04/13/21 10:32 P pineapple [PINEAPPLE] Allergy Unknown I-HIVES,RES Verified 04/13/21 10:32 P. Sulfa (Sulfonamide Allergy Unknown NA-NAUSEA/V Verified 04/13/21 10:32 Antibiotics) OMITING [SULFA (SULFONAMIDE ANTIBIOTICS)] walnut [WALNUT] Allergy Unknown I-HIVES,RES Verified 04/13/21
[2022-09-03 12:51] LABS: UTC Influenza A Antigen Negative (Negative); UTC Influenza B Antigen Negative (Negative)
[2022-09-03 13:15] VITALS: BP 121/76; PULSE 76; RESP 19; TEMP 36.9; O2SAT 98
== END 2022-09-03 13:18 | disposition home or self-care (01) ==
PROVIDERS: Emergency Provider Nurse Practitioner; PCP Internal Medicine
DX: J32.9 Chronic sinusitis, unspecified (principal)
CPT/HCPCS: 87804; 99212; G0463

== ENCOUNTER → 2022-09-23 12:29 | Outpatient (CLI) | payer MEDICARE, OTHER, SELFPAY ==
[2022-09-23 12:57] LABS: Basophils % 0.6 % (0.1-2.0); Eosinophils # 0.2 K/mm3 (0.0-0.4); Eosinophils % 3.2 % (0.1-12.0); Hematocrit 45.3 % (37.0-47.0); Hemoglobin 14.5 g/dL (12.2-16.2); Lymphocytes % 29.6 % (10-50); Mean Corpuscular HGB Conc 31.9 g/dL (31.8-35.4); Mean Corpuscular Volume 87.6 fl (81-99); Mean Platelet Volume 8.7 fl (7.4-10.4); Monocytes # 0.4 K/mm3 (0.1-1.0); Monocytes % 5.7 % (1.7-9.3); Neutrophils # 4.2 K/mm3 (1.8-7.8); Neutrophils % 60.9 % (37.0-80.0); Platelet Count 293 K/mm3 (142-424); Red Blood Count 5.17 M/mm3 (4.20-5.40); Red Cell Distribution Width 13.4 % (11.5-17.5); White Blood Count 6.9 K/mm3 (4.8-10.8)
[2022-09-23 13:36] LABS: Alanine Aminotransferase 27 U/L (12-78); Albumin Level 3.8 g/dl (3.5-5.0); Albumin/Globulin Ratio 1.4 (1.1-1.8); Alkaline Phosphatase 145 U/L (38-126); Anion Gap 9.3 mEq/L (5-15); Aspartate Amino Transferase 28 U/L (14-36); Bilirubin,Total 0.7 mg/dl (0.2-1.3); Blood Urea Nitrogen 12 mg/dl (7-17); Calcium 9.3 mg/dl (8.4-10.2); Carbon Dioxide 31 mmol/L (22.0-30.0); Chloride 102 mmol/L (98-107); Chol/HDL Ratio 3.3 (1-3.5); Cholesterol 154 mg/dl (140-200); Estimated Glomerular Filt Rate 49 ml/min (>60); GFR (African American) 59 ML/MIN (>60); Globulin 2.8 g/dL (1.3-3.2); Glucose 108 mg/dl (74-100); HDL Cholesterol 46 mg/dl (40-60); Potassium 4.3 mmoL/L (3.5-5.1); Sodium 138 mmol/L (136-145); Total Protein,Serum 6.6 g/dl (6.3-8.2); Triglycerides 124 mg/dl (30-150); VLDL Cholesterol 25 mg/dL (0-40)
[2022-09-23 15:22] LABS: Creatinine,Urine Random 116 mg/dL (Not Estab.)
[2022-09-23 15:26] LABS: Microalbumin < 6.000 mg/L (0-16.7)
[2022-09-23 15:42] LABS: Direct LDL Cholesterol 80.32 mg/dL (100-129)
[2022-09-23 19:44] LABS: Hemoglobin A1C 6.2 % (4.0-6.0)
== END ==
PROVIDERS: PCP Internal Medicine; Visit Provider Internal Medicine
DX: E11.9 Type 2 diabetes mellitus without complications (principal); I10 Essential (primary) hypertension; E78.5 Hyperlipidemia, unspecified; Z85.820 Personal history of malignant melanoma of skin
CPT/HCPCS: 80053; 80061; 82043; 82570; 83036; 85025

== ENCOUNTER → 2022-12-21 12:40 | Outpatient (CLI) | payer MEDICARE, OTHER, SELFPAY ==
[2022-12-21 15:13] LABS: Hemoglobin A1C 5.9 % (4.0-6.0)
== END ==
PROVIDERS: PCP Internal Medicine; Visit Provider Internal Medicine
DX: E11.9 Type 2 diabetes mellitus without complications (principal); I10 Essential (primary) hypertension
CPT/HCPCS: 83036

== ENCOUNTER → 2023-03-24 12:54 | Outpatient (CLI) | payer MEDICARE, OTHER, SELFPAY ==
[2023-03-24 14:01] LABS: Hemoglobin A1C 6.1 % (4.0-6.0)
[2023-03-24 15:07] LABS: Anion Gap 13.2 mEq/L (5-15); Blood Urea Nitrogen 20 mg/dl (7-17); Carbon Dioxide 27 mmol/L (22.0-30.0); Chloride 101 mmol/L (98-107); Potassium 4.2 mmoL/L (3.5-5.1); Sodium 137 mmol/L (136-145)
[2023-03-24 15:08] LABS: Alanine Aminotransferase 37 U/L (12-78); Albumin Level 3.8 g/dl (3.5-5.0); Albumin/Globulin Ratio 1.3 (1.1-1.8); Alkaline Phosphatase 150 U/L (38-126); Aspartate Amino Transferase 32 U/L (14-36); Bilirubin,Total 0.4 mg/dl (0.2-1.3); Calcium 8.7 mg/dl (8.4-10.2); Chol/HDL Ratio 2.2 (1-3.5); Cholesterol 132 mg/dl (140-200); Estimated Glomerular Filt Rate 62 ml/min (>60); GFR (African American) 75 ML/MIN (>60); Glucose 109 mg/dl (74-100); HDL Cholesterol 59 mg/dl (40-60); Total Protein,Serum 6.8 g/dl (6.3-8.2); Triglycerides 132 mg/dl (30-150); VLDL Cholesterol 26 mg/dL (0-40)
[2023-03-24 15:18] LABS: Direct LDL Cholesterol 60.54 mg/dL (100-129)
[2023-03-24 15:35] LABS: Thyroid Stimulating Hormone 1.27 uIU/mL (0.465-4.68)
== END ==
PROVIDERS: PCP Internal Medicine; Visit Provider Internal Medicine
DX: E11.9 Type 2 diabetes mellitus without complications (principal); E03.9 Hypothyroidism, unspecified; E78.5 Hyperlipidemia, unspecified; I10 Essential (primary) hypertension; K21.9 Gastro-esophageal reflux disease without esophagitis; Z85.820 Personal history of malignant melanoma of skin
CPT/HCPCS: 80053; 80061; 83036; 84443

== ENCOUNTER → 2023-05-12 15:35 | Outpatient (CLI) | payer MEDICARE, OTHER, SELFPAY ==
--- NOTE | 2023-05-12 15:41 | XR_ITS ---
FINAL REPORT CLINICAL HISTORY: LOW BACK PAIN COMPARISON: 04/30/2021 FINDINGS: 5 views of the lumbar spine were obtained. There is no evidence of fracture or dislocation. The vertebral alignment is normal. There is mild to moderate degenerative change with multilevel osteophytes present. No paraspinous soft tissue abnormalities identified. Postoperative changes are present in the right upper quadrant. IMPRESSION: No acute bony abnormality. Mild to moderate degenerative change with multilevel osteophytes present. Reviewed, Interpreted and Dictated by Rex Hill III, MD Transcribed by Sienna Kunz Authenticated and [facility]
== END ==
LOC: LAB 15:37 → RAD 15:39
PROVIDERS: PCP Internal Medicine; Visit Provider Internal Medicine
DX: M54.50 Low back pain, unspecified (principal)
CPT/HCPCS: 72110

== ENCOUNTER 2023-07-04 10:14 | Emergency (ER) | payer MEDICARE, OTHER, SELFPAY ==
[2023-07-04] VITALS (9 sets, daily range): BP systolic 105–153; BP diastolic 71–89; PULSE 72–88; RESP 15–21; TEMP 36.7–36.8; O2SAT 93–95; BMI 36.4
--- NOTE | 2023-07-04 10:14 | ECG_ITS ---
APPROVED REPORT Exam: Resting ECG HR:94 bpm ECG Measurements Heart Rate 94 AXES GA 173 P 76 QRSd 81 QRS -19 QT 339 T 22 QTc 391 Conclusion SINUS RHYTHM MINIMAL ST DEPRESSION [0.025+ mV ST DEPRESSION] BORDERLINE ECG UNCONFIRMED REPORT Electronically signed by : Esteban Adame MD 07/04/2023 20:00:05
--- NOTE | 2023-07-04 10:23 | XR_ITS ---
FINAL REPORT CLINICAL HISTORY: cp FINDINGS: A portable view of the chest is obtained. Cardiac and mediastinal silhouettes are normal. The lungs are clear. There is no pleural effusion or pneumothorax. IMPRESSION: No acute process on this portable exam. Reviewed, Interpreted and Dictated by Sophia Brooks MD Transcribed by Stan Loyd Authenticated and [facility]
--- NOTE | 2023-07-04 10:32 | PC.NURSE ---
RAD at BS for portable chest xray
[2023-07-04 10:38] LABS: Basophils % 0.4 % (0.1-2.0); Eosinophils # 0.1 K/mm3 (0.0-0.4); Eosinophils % 0.6 % (0.1-12.0); Hemoglobin 15.8 g/dL (12.2-16.2); Lymphocytes % 10.9 % (10-50); Mean Corpuscular HGB Conc 32.2 g/dL (31.8-35.4); Mean Corpuscular Hemoglobin 27.2 pg (27.0-31.2); Mean Corpuscular Volume 84.3 fl (81-99); Mean Platelet Volume 7.6 fl (7.4-10.4); Monocytes # 0.6 K/mm3 (0.1-1.0); Monocytes % 5.9 % (1.7-9.3); Neutrophils # 7.6 K/mm3 (1.8-7.8); Neutrophils % 82.2 % (37.0-80.0); Platelet Count 213 K/mm3 (142-424); Red Blood Count 5.82 M/mm3 (4.20-5.40); Red Cell Distribution Width 13.5 % (11.5-17.5); White Blood Count 9.2 K/mm3 (4.8-10.8)
[2023-07-04 10:43] LABS: Alanine Aminotransferase 41 U/L (12-78); Albumin Level 4.2 g/dl (3.5-5.0); Albumin/Globulin Ratio 1.1 (1.1-1.8); Alkaline Phosphatase 117 U/L (38-126); Anion Gap 10.7 mEq/L (5-15); Aspartate Amino Transferase 33 U/L (14-36); Bilirubin,Total 1.5 mg/dl (0.2-1.3); Blood Urea Nitrogen 14 mg/dl (7-17); Calcium 9.2 mg/dl (8.4-10.2); Carbon Dioxide 28 mmol/L (22.0-30.0); Chloride 102 mmol/L (98-107); Creatinine Clearance Estimated 82 mL/min (50-200); Estimated Glomerular Filt Rate 62 ml/min (>60); GFR (African American) 75 ML/MIN (>60); Globulin 3.9 g/dL (1.3-3.2); Glucose 131 mg/dl (74-100); Lipase 26 U/L (23-300); Potassium 3.7 mmoL/L (3.5-5.1); Sodium 137 mmol/L (136-145); Total Protein,Serum 8.1 g/dl (6.3-8.2)
--- NOTE | 2023-07-04 10:45 | ECG_ITS ---
APPROVED REPORT Exam: Resting ECG HR:76 bpm ECG Measurements Heart Rate 76 AXES NJ 164 P 61 QRSd 85 QRS -26 QT 376 T -4 QTc 406 Conclusion SINUS RHYTHM BORDERLINE LEFT AXIS DEVIATION [QRS AXIS < -20] MODERATE T-WAVE ABNORMALITY, CONSIDER ANTERIOR ISCHEMIA [-0.1+ mV T-WAVE IN V3/V4] ABNORMAL ECG UNCONFIRMED REPORT Electronically signed by : Esteban Adame MD 07/06/2023 17:22:47
[2023-07-04 10:55] LABS: Troponin I < 0.01 ng/ml (0.00-0.034)
--- NOTE | 2023-07-04 11:04 | CT_ITS ---
FINAL REPORT TECHNIQUE: Axial imaging of the chest is obtained after the administration of contrast. 3-D MIP reformatted images were also obtained and reviewed per PE protocol. CLINICAL HISTORY: hypoxemia, pleurisy FINDINGS: The pulmonary arteries are well filled. There is no evidence of pulmonary embolus. There is no aortic dissection or intimal flap. The heart is mildly enlarged. There is no mediastinal, hilar, or axillary lymphadenopathy. There are bilateral groundglass opacities that may represent mild pulmonary edema.. There is no pleural or pericardial effusion. Limited evaluation of the upper abdomen demonstrate a left adrenal nodule measuring 19 mm. No acute osseous abnormality. IMPRESSION: No pulmonary embolism. Cardiomegaly and probable mild pulmonary edema. Left adrenal nodule is likely an adenoma in the absence of known malignancy. Reviewed, Interpreted and Dictated by Sophia Brooks MD Transcribed by Stan Loyd Authenticated and [facility]
--- NOTE | 2023-07-04 11:13 | PC.NURSE ---
pt in radiology
--- NOTE | 2023-07-04 11:32 | HMH.EDGENADL ---
Discharge Plan Disposition Patient Disposition: Home, Self-Care Prescriptions Prescriptions: No Action aspirin [Adult Low Dose Aspirin] 81 mg tablet,delayed release (DR/EC) 81 mg PO DAILY atorvastatin 20 mg tablet 20 mg PO HS diazepam [Valium] 5 mg tablet 5 mg PO HS PRN (Reason: preprocedural anxiety) Qty: 2 0RF Rx Instructions: Take one tablet 30 minutes before MRI, may take second tablet at time of MRI if needed quinapril 40 mg tablet 40 mg PO DAILY potassium chloride 10 mEq capsule, extended release 10 meq PO DAILY levothyroxine 88 mcg capsule 88 mcg PO DAILY triamterene-hydrochlorothiazid 37.5-25 mg tablet 1 tab PO DAILYP PRN (Reason: HYPERTENSION) omeprazole 20 mg capsule,delayed release(DR/EC) 20 mg PO DAILY benzonatate 100 mg capsule 100 mg PO TID PRN (Reason: cough) Qty: 30 0RF amoxicillin-pot clavulanate 875-125 mg Tablet 1 tab PO Q12H Qty: 20 0RF prednisone 10 mg tablet 10 mg PO BID 5 Days Qty: 10 0RF Referrals Follow up/Referrals: Jesus Pollack MD [Primary Care Provider] - See instructions Activity Restrictions/Add. Instructions Additional Instructions/Restrictions: Call your family doctor to establish care for this visit to the emergency department and schedule follow-up within 48 hours to ensure improvement. If you have any worsening of your condition or any other concerning signs or symptoms, return to the emergency department or your primary care doctor for further evaluation. Clinical Impressions Clinical Impression: Acute dyspnea Chest pain Qualifiers: Chest pain type: other chest pain Qualified Code(s): R07.89 - Other chest pain Discharge ED Provider: Baltazar Arellano General Adult HPI General Chief complaint: Chest Pain Stated complaint: chest pain Time Seen by Provider: 07/04/23 10:19 Mode of Arrival: Ambulatory Source of Information: Patient Limitations: No Limitations Description of Symptoms (Recalled from ER Triage Doc. by RN): Patient states she got her 3rd COVID booster yesterday and since last night she has been feeling drained and had dull midsternal chest pain. Denies N/V/D and states she took Ibuprofen for the pain approx 1 hour ago. History of Present Illness HPI narrative: 72-year-old female with history of hypertension, hyperlipidemia, melanoma and remission as of the , cholecystectomy, appendectomy presenting with shortness of breath and chest pain. Patient states that 1 day prior to arrival on 07/03, received COVID booster in the AM. A few hours afterward, patient started having chest pain that started in her sternum and radiates bilaterally across her chest. Denies cough, mops this, fevers or chills, nausea or vomiting, but has felt generally weak. No unilateral deficits. Nothing particular makes it better, but shortness of breath is positional and made worse when she lies flat. Related Data Home Medications Medication Instructions Recorded Confirmed levothyroxine 88 mcg capsule 88 mcg PO DAILY thyroid 02/01/19 04/13/21 omeprazole 20 mg capsule,delayed 20 mg PO DAILY GERD 02/01/19 04/13/21 release potassium chloride 10 mEq 10 meq PO DAILY Supplement 02/01/19 04/13/21 capsule,extended release quinapril 40 mg tablet 40 mg PO DAILY Hypertension 02/01/19 04/13/21 triamterene 37.5 1 tab PO DAILYP PRN HYPERTENSION 02/01/19 04/13/21 mg-hydrochlorothiazide 25 mg tablet aspirin 81 mg tablet,delayed 81 mg PO DAILY 02/22/21 04/13/21 release (Adult Low Dose Aspirin) atorvastatin 20 mg tablet 20 mg PO HS 02/22/21 04/13/21 Previous Rx's Medication Instructions Recorded diazepam 5 mg tablet (Valium) 5 mg PO HS PRN preprocedural 02/22/21 anxiety #2 tabs amoxicillin 875 mg-potassium 1 tab PO Q12H #20 tabs 09/03/22 clavulanate 125 mg tablet benzonatate 100 mg capsule 100 mg PO TID PRN cough #30 caps 09/03/22 prednisone 10 mg tablet 10 mg PO BID 5 days #10 tabs 09/03/22 Allergies Allergy
[2023-07-04 11:52] LABS: VBG Base Excess -1.2 mmol/L (-2.4-2.3); VBG Oxygen Saturation 96.5 % (50-70); VBG PCO2 42.3 mmol/L (35-51); VBG PH 7.37 mmol/L (7.31-7.41); VBG PO2 82.9 mmol/L (28-40); VBG Total CO2 25.3 mmol/L (23-27)
[2023-07-04 14:16] LABS: Troponin I < 0.01 ng/ml (0.00-0.034)
== END 2023-07-04 14:30 | disposition home or self-care (01) ==
PROVIDERS: Emergency Provider Emergency Medicine; PCP Internal Medicine
DX: R07.9 Chest pain, unspecified (principal); R06.02 Shortness of breath; I10 Essential (primary) hypertension; E78.5 Hyperlipidemia, unspecified; G43.909 Migraine, unspecified, not intractable, without status migrainosus; E07.9 Disorder of thyroid, unspecified
CPT/HCPCS: 71045; 71275; 80053; 82803; 83690; 83880; 84484; 85025; 93005; 99285; Q9967

== ENCOUNTER → 2023-07-05 14:15 | Outpatient (CLI) | payer MEDICARE, OTHER, SELFPAY ==
--- NOTE | 2023-07-05 14:21 | CA_ITS ---
APPROVED REPORT EXAM: Comprehensive 2D, Doppler, and color-flow Echocardiogram Buffing Turner And Counter: Annia Morales, MATILDA, RVS Ht: 5 ft 5 in Wt: 214lbs BSA: 2.04 BP: 105/71 mmHg Indications: CP, hx-covid, abn cxr, HTN, HLD, Family hx- HD 2D Dimensions LVDd 4.25 cm F: 3.9 - 5.3 LVEF (Visual) 50.90 % LVDs 3.16 cm F: 2.2 - 3.5 LA Volume 59.30 mL Aortic Root 3.04 cm F: 2.7 - 3.3 LA Volume Index 29.07 mL/m2 (M/F) 16-34 Left Atrium 3.32 cm F: 2.7 - 3.8 LVOT 1.90 cm (M/F) 1.5-2.5 M-Mode Dimensions RVDd 2.82 cm (0.9-2.6) LA Diam 3.65 cm (1.9-4.0) LVDd 4.75 cm (3.5-5.7) Ao Diam 3.26 cm (2.0-3.7) LVDs 3.58 cm (3.5-5.7) IVSd 0.96 cm (0.6-1.1) PWd 0.82 cm (0.6-1.1) EF (Teich) 52.20% EPSs 0.93 cm FS 26.80% EDV (Teich) 112.30 mL TAPSE 1.07 (<1.7) ESV (Teich) 53.70 mL LV Diastology E Decel Time 363.00 (160-240 msec) E/A Ratio 0.74 MED E' 6.90 (< 7 cm/sec) MED A' 9.20 cm/s E'/MED E' Ratio 6.26 (>14) LAT E' 6.80 (<10 cm/sec) LAT A' 7.40 cm/s E/LAT E' Ratio 6.35 (>14) Aortic Valve LVOT Max 80.00 (70-110 cm/s) LVOT VTI 15.53 cm AoV Peak Jaime. 125.00 (50-130 cm/s) AI PHT 514.00 ms AO Peak GR. 6.20 mmHg AO Mean GR. 3.10 (<5 mmHg) AO VTI 21.04 (18-25 cm) BAKARI (VTI) 2.09 (2.5-4.5 cm2) Mitral Valve MV A Velocity 58.00 (40-130 cm/s) E/A Ratio 0.74 MV Decel. Time 363.00 (160-240 ms) Pulmonary Valve PV Peak Velocity 88.00 (50-150 cm/s) Tricuspid Valve TR P. Velocity 237.00 cm/s RAP Estimate 10.00 mmHg RVSP 32.40 mmHg Left Ventricle The left ventricle is normal size. Left ventricular systolic function is mildly decreased. There is normal left ventricular wall thickness. There is mild global hypokinesis present The left ventricular diastolic function is normal. LVEF is 45-50%. Right Ventricle The right ventricle is normal size. The right ventricular systolic function is normal. Atria The left atrium size is normal. The right atrium size is normal. There is no Doppler evidence of interatrial shunt. Aortic Valve The aortic valve opens well. There is no aortic valvular stenosis. Mild aortic regurgitation. Mitral Valve The mitral valve is normal in structure. No evidence of mitral valve stenosis. Trace mitral regurgitation. Tricuspid Valve The tricuspid valve leaflets are thin and pliable. Trace tricuspid regurgitation. RVSP is 20-25 mmHg. Pulmonic Valve The pulmonary valve is normal in structure. Trace pulmonic regurgitation. Great Vessels The aortic root is normal in size. The ascending aorta is not well visualized. IVC is normal in size and collapses >50% with inspiration. Pericardium There is no pericardial effusion. Other Information Study Quality: Adequate Conclusion Normal LV size with mildly reduced LV systolic function (LVEF 45-50%) No significant valvular stenosis. Further evaluation of the reduced LVEF is recommended by cardiac MRI (cardiomyopathy protocol). Electronically signed by : Rebekah Cortez MD 07/08/2023 19:30:39
== END ==
PROVIDERS: PCP Internal Medicine; Visit Provider Internal Medicine
DX: R07.9 Chest pain, unspecified (principal)
CPT/HCPCS: 93306

== ENCOUNTER → 2023-07-07 09:57 | Outpatient (CLI) | payer MEDICARE, OTHER, SELFPAY ==
--- NOTE | 2023-07-07 | ECG_ITS ---
APPROVED REPORT Exam: Resting ECG HR:69 bpm ECG Measurements Heart Rate 69 AXES OK 167 P 70 QRSd 88 QRS -49 QT 395 T 61 QTc 414 Conclusion SINUS RHYTHM INDETERMINATE AXIS NONSPECIFIC T-WAVE ABNORMALITY,CONSIDER ISCHEMIA ABNORMAL ECG Electronically signed by : Jesus Pollack MD 07/07/2023 10:44:37
== END ==
PROVIDERS: PCP Internal Medicine; Visit Provider Internal Medicine
DX: R07.9 Chest pain, unspecified (principal)
CPT/HCPCS: 93005

== ENCOUNTER → 2023-07-24 12:30 | Outpatient (CLI) | payer MEDICARE, OTHER, SELFPAY ==
--- NOTE | 2023-07-24 12:48 | CT_ITS ---
FINAL REPORT CLINICAL HISTORY: upper rt lumbar pain/ lower Thor pain COMPARISON: None FINDINGS: Axial CT images of the thoracic spine were obtained after the administration of IV contrast. Sagittal and coronal reformatted images were also obtained. This study was performed with techniques to keep radiation doses as low as reasonably achievable (ALARA). Individualized dose reduction techniques using automated exposure control or adjustment of mA and/or kV according to the patient's size were employed. There is no evidence of fracture. The bony alignment is normal. There is multilevel moderate degenerative change. On the axial images, there are multilevel bulges with anterior osteophytes. There is a right foraminal T11-12 disc protrusion. Mild central canal stenosis with AP diameter of the thecal sac of 9 mm is noted at the level. IMPRESSION: No fracture or acute bony abnormality. Disc protrusion and mild central canal stenosis at T11-12. Reviewed, Interpreted and Dictated by Rex Hill III, MD Transcribed by Rose Marie Lane Authenticated and [facility]
--- NOTE | 2023-07-24 12:48 | CT_ITS ---
FINAL REPORT CLINICAL HISTORY: LOWER THORACIC /UPPER LUMBAR PAIN RT,H/O MELANOMA COMPARISON: None FINDINGS: Axial imaging of the lumbar spine was obtained without and with contrast. Sagittal and coronal reformatted images were also obtained and reviewed.This study was performed with techniques to keep radiation doses as low as reasonably achievable (ALARA). Individualized dose reduction techniques using automated exposure control or adjustment of mA and/or kV according to the patient's size were employed. There is no fracture. There is multilevel degenerative change. Vacuum phenomenon is noted at L5-S1. T12-L1: Annular disc bulge, facet arthropathy, and osteophytes. No evidence of significant central canal stenosis or neural foraminal narrowing. L1-2: Annular disc bulge, facet arthropathy, and osteophytes. Mild bilateral neural foraminal narrowing. L2-3: Annular disc bulge, facet arthropathy, and osteophytes. Mild bilateral neural foraminal narrowing. L3-4: Your bulge plus plus broad-based central disc protrusion. Moderate bilateral neural foraminal narrowing. Moderate central canal stenosis with AP diameter of the thecal sac of 6 mm. L4-5: Annular disc bulge, facet arthropathy, and osteophytes. Moderate bilateral neural foraminal narrowing. Moderate central canal stenosis with AP diameter of the thecal sac of 6 mm. L5-S1: Annular disc bulge, facet arthropathy, and osteophytes. Severe bilateral neural foraminal narrowing. IMPRESSION: Multilevel degenerative change without acute bony abnormality. Disc protrusion at L3-4. Moderate central canal stenosis at L3-4 and L4-5. Reviewed, Interpreted and Dictated by Rex Hill III, MD Transcribed by Rose Marie Lane Authenticated and [facility]
== END ==
PROVIDERS: PCP Internal Medicine; Visit Provider Internal Medicine
DX: M54.6 Pain in thoracic spine (principal); M54.50 Low back pain, unspecified; Z85.820 Personal history of malignant melanoma of skin
CPT/HCPCS: 72129; 72133; Q9967

== ENCOUNTER → 2023-09-29 13:53 | Outpatient (CLI) | payer MEDICARE, OTHER, SELFPAY ==
[2023-09-29 14:55] LABS: Basophils # 0.1 K/mm3 (0-0.2); Basophils % 0.6 % (0.1-2.0); Eosinophils # 0.2 K/mm3 (0.0-0.4); Eosinophils % 2.2 % (0.1-12.0); Hematocrit 44.7 % (37.0-47.0); Lymphocytes # 2.3 K/mm3 (0.7-4.5); Lymphocytes % 28.2 % (10-50); Mean Corpuscular HGB Conc 33.5 g/dL (31.8-35.4); Mean Corpuscular Hemoglobin 29.4 pg (27.0-31.2); Mean Corpuscular Volume 87.6 fl (81-99); Monocytes # 0.5 K/mm3 (0.1-1.0); Monocytes % 5.8 % (1.7-9.3); Neutrophils # 5.1 K/mm3 (1.8-7.8); Neutrophils % 63.2 % (37.0-80.0); Platelet Count 246 K/mm3 (142-424); Red Cell Distribution Width 13.5 % (11.5-17.5); White Blood Count 8.1 K/mm3 (4.8-10.8)
[2023-09-29 14:58] LABS: Alanine Aminotransferase 48 U/L (12-78); Albumin/Globulin Ratio 1.3 (1.1-1.8); Alkaline Phosphatase 128 U/L (38-126); Anion Gap 10.7 mEq/L (5-15); Aspartate Amino Transferase 40 U/L (14-36); Bilirubin,Total 0.8 mg/dl (0.2-1.3); Blood Urea Nitrogen 14 mg/dl (7-17); Calcium 8.8 mg/dl (8.4-10.2); Carbon Dioxide 29 mmol/L (22.0-30.0); Chloride 101 mmol/L (98-107); Chol/HDL Ratio 3.2 (1-3.5); Cholesterol 151 mg/dl (140-200); Estimated Glomerular Filt Rate 55 ml/min (>60); GFR (African American) 66 ML/MIN (>60); Globulin 3.1 g/dL (1.3-3.2); Glucose 106 mg/dl (74-100); HDL Cholesterol 47 mg/dl (40-60); Potassium 3.7 mmoL/L (3.5-5.1); Sodium 137 mmol/L (136-145); Total Protein,Serum 7.1 g/dl (6.3-8.2); Triglycerides 112 mg/dl (30-150); VLDL Cholesterol 22 mg/dL (0-40)
[2023-09-29 15:09] LABS: Direct LDL Cholesterol 81.54 mg/dL (100-129)
[2023-09-29 18:48] LABS: Hemoglobin A1C 6.1 % (4.0-6.0)
[2023-09-29 19:20] LABS: Microalbumin/Creatinine Ratio 3.8
[2023-09-29 19:37] LABS: Creatinine,Urine Random 187 mg/dL (Not Estab.)
== END ==
PROVIDERS: PCP Internal Medicine; Visit Provider Internal Medicine
DX: E11.9 Type 2 diabetes mellitus without complications (principal); I10 Essential (primary) hypertension; E78.5 Hyperlipidemia, unspecified; E03.9 Hypothyroidism, unspecified; Z85.820 Personal history of malignant melanoma of skin
CPT/HCPCS: 80053; 80061; 82043; 82570; 83036; 85025

== ENCOUNTER 2023-10-11 15:08 | Outpatient (CLI) | payer MEDICARE, OTHER, SELFPAY ==
--- NOTE | 2023-10-11 15:12 | MM_ITS ---
PROCEDURE INFORMATION: Exam: MG Bilateral Screening 3D Mammography Exam date and time: 10/11/2023 3:14 PM Age: 73 years old Clinical indication: Screening mammogram TECHNIQUE: Imaging protocol: Bilateral Screening tomosynthesis and 2D mammography including computer-aided detection (CAD) when performed. COMPARISON: 1. MG MM DIG SCREENING MAMM BI W/CAD 07/05/2022 1:04 PM 2. MG DMDXUR DIG MAMM-DX UNI-RT 11/18/2015 10:50 AM 3. MG DMDXUAVR DIG MAMM-DX UNI ADD VIEWS-RT 11/11/2015 2:25 PM 4. MG DMSB DIG MAMM-SCREEN BHARATH 10/28/2015 9:01 AM FINDINGS: MAMMOGRAPHY: Breast composition: There are scattered areas of fibroglandular density. Mass: Stable benign-appearing subcentimeter nodules are present in the right breast. No new or morphologically suspicious nodule has developed to suggest malignancy. Architectural distortion: No new or suspicious architectural distortion. Calcifications: No new or suspicious calcifications are present Asymmetric density: No new or suspicious asymmetric density is present Skin thickening: None. Axillary adenopathy: None. IMPRESSION: No mammographic evidence of malignancy. Recommend annual screening mammography unless otherwise clinically indicated. ASSESSMENT: BI-RADS category 2: Benign
== END 2023-10-11 23:59 ==
LOC: RAD 15:08
PROVIDERS: PCP Internal Medicine; Visit Provider Internal Medicine
DX: Z12.31 Encounter for screening mammogram for malignant neoplasm of breast (principal)
CPT/HCPCS: 77063; 77067

== ENCOUNTER 2023-10-24 12:39 | Outpatient (CLI) | payer MEDICARE, OTHER, SELFPAY ==
[2023-10-24] MEDS: ALBUTEROL 0.083% 2.5 MG/3 ML NEB IH (13:40)
[2023-10-24 13:45] VITALS: PULSE 88; PULSE 92
== END 2023-10-24 23:59 ==
LOC: RT 12:40
PROVIDERS: PCP Internal Medicine; Visit Provider Internal Medicine Pulmonary Disease
DX: R06.02 Shortness of breath (principal)
CPT/HCPCS: 94060; 94618; 94640; 94726; 94729

== ENCOUNTER 2024-04-16 16:27 | Outpatient (CLI) | payer MEDICARE, OTHER, SELFPAY ==
[2024-04-16 16:51] LABS: Alanine Aminotransferase 41 U/L (12-78); Albumin Level 3.9 g/dl (3.5-5.0); Albumin/Globulin Ratio 1.4 (1.1-1.8); Alkaline Phosphatase 129 U/L (38-126); Anion Gap 10.7 mEq/L (5-15); Aspartate Amino Transferase 33 U/L (14-36); Bilirubin,Total 0.9 mg/dl (0.2-1.3); Blood Urea Nitrogen 16 mg/dl (7-17); Calcium 9.2 mg/dl (8.4-10.2); Carbon Dioxide 31 mmol/L (22.0-30.0); Chloride 101 mmol/L (98-107); Cholesterol 142 mg/dl (140-200); Estimated Glomerular Filt Rate 55 ml/min (>60); GFR (African American) 66 ML/MIN (>60); Globulin 2.8 g/dL (1.3-3.2); Glucose 106 mg/dl (74-100); HDL Cholesterol 48 mg/dl (40-60); Potassium 3.7 mmoL/L (3.5-5.1); Sodium 139 mmol/L (136-145); Total Protein,Serum 6.7 g/dl (6.3-8.2); Triglycerides 111 mg/dl (30-150); VLDL Cholesterol 22 mg/dL (0-40)
[2024-04-16 17:02] LABS: Direct LDL Cholesterol 74.18 mg/dL (100-129)
[2024-04-16 17:20] LABS: Thyroid Stimulating Hormone 1.14 uIU/mL (0.465-4.68)
[2024-04-16 19:19] LABS: Hemoglobin A1C 7.9 % (4.0-6.0)
== END 2024-04-16 23:59 | disposition home or self-care (01) ==
LOC: LAB.DROPOF 16:28
PROVIDERS: PCP Internal Medicine; Visit Provider Internal Medicine
DX: I10 Essential (primary) hypertension (principal); E11.69 Type 2 diabetes mellitus with other specified complication; E78.5 Hyperlipidemia, unspecified; E03.9 Hypothyroidism, unspecified
CPT/HCPCS: 80053; 80061; 83036; 84443

== ENCOUNTER 2024-10-17 11:53 | Outpatient (CLI) | payer MEDICARE, OTHER, SELFPAY ==
[2024-10-17 11:46] LABS: Basophils % 0.6 % (0.1-2.0); Eosinophils # 0.1 K/mm3 (0.0-0.4); Hematocrit 46.9 % (37.0-47.0); Hemoglobin 15.4 g/dL (12.2-16.2); Lymphocytes % 27.6 % (10-50); Mean Corpuscular HGB Conc 32.8 g/dL (31.8-35.4); Mean Corpuscular Hemoglobin 27.9 pg (27.0-31.2); Mean Corpuscular Volume 85.1 fl (81-99); Mean Platelet Volume 9.9 fl (7.4-10.4); Monocytes # 0.5 K/mm3 (0.1-1.0); Monocytes % 7.2 % (1.7-9.3); Neutrophils # 4.4 K/mm3 (1.8-7.8); Neutrophils % 62.5 % (37.0-80.0); Platelet Count 246 K/mm3 (142-424); Red Blood Count 5.51 M/mm3 (4.20-5.40); Red Cell Distribution Width 12.9 % (11.5-17.5); White Blood Count 7.1 K/mm3 (4.8-10.8)
[2024-10-17 12:07] LABS: Creatinine,Urine Random 262 mg/dL (Not Estab.)
[2024-10-17 12:08] LABS: Microalbumin/Creatinine Ratio 8.7
[2024-10-17 12:09] LABS: Albumin Level 4.1 g/dl (3.5-5.0); Chloride 99 mmol/L (98-107)
[2024-10-17 12:10] LABS: Sodium 138 mmol/L (136-145)
[2024-10-17 12:12] LABS: Alanine Aminotransferase 44 U/L (12-78); Albumin/Globulin Ratio 1.5 (1.1-1.8); Alkaline Phosphatase 112 U/L (38-126); Aspartate Amino Transferase 40 U/L (14-36); Blood Urea Nitrogen 18 mg/dl (7-17); Carbon Dioxide 29 mmol/L (22.0-30.0); Estimated Glomerular Filt Rate 49 ml/min (>60); GFR (African American) 59 ML/MIN (>60); Globulin 2.8 g/dL (1.3-3.2); Total Protein,Serum 6.9 g/dl (6.3-8.2)
[2024-10-17 12:13] LABS: Calcium 9.4 mg/dl (8.4-10.2); Chol/HDL Ratio 4.2 (1-3.5); Cholesterol 212 mg/dl (140-200); Glucose 107 mg/dl (74-100); HDL Cholesterol 50 mg/dl (40-60); Triglycerides 110 mg/dl (30-150); VLDL Cholesterol 22 mg/dL (0-40)
[2024-10-17 12:25] LABS: Direct LDL Cholesterol 133.71 mg/dL (100-129)
[2024-10-17 12:44] LABS: Thyroid Stimulating Hormone 8.71 uIU/mL (0.465-4.68)
[2024-10-17 13:48] LABS: Hemoglobin A1C 5.8 % (4.0-6.0)
== END 2024-10-17 23:59 | disposition home or self-care (01) ==
LOC: LAB.DROPOF 11:53
PROVIDERS: PCP Internal Medicine; Visit Provider Internal Medicine
DX: I10 Essential (primary) hypertension (principal); E11.69 Type 2 diabetes mellitus with other specified complication; E78.5 Hyperlipidemia, unspecified; Z85.820 Personal history of malignant melanoma of skin; E03.9 Hypothyroidism, unspecified
CPT/HCPCS: 80053; 80061; 82043; 82570; 83036; 84443; 85025

== ENCOUNTER 2024-11-12 08:22 | Outpatient (CLI) | payer MEDICARE, OTHER, SELFPAY ==
--- NOTE | 2024-11-12 08:24 | MM_ITS ---
PROCEDURE INFORMATION: Exam: MG Bilateral Screening 3D Mammography Exam date and time: 11/12/2024 8:40 AM Age: 74 years old Clinical indication: Screening. Her maternal grandmother and paternal aunt had breast cancer. TECHNIQUE: Imaging protocol: Bilateral Screening tomosynthesis and 2D mammography including computer-aided detection (CAD) when performed. COMPARISON: 1. MG MM DIG SCREENING MAMM BI W/CAD 10/11/2023 3:14 PM 2. MG MM DIG SCREENING MAMM BI W/CAD 07/05/2022 1:04 PM 3. MG DMDXUR DIG MAMM-DX UNI-RT 11/18/2015 10:50 AM 4. MG DMDXUAVR DIG MAMM-DX UNI ADD VIEWS-RT 11/11/2015 2:25 PM FINDINGS: MAMMOGRAPHY: Breast composition: There are scattered areas of fibroglandular density. Mass: None. Architectural distortion: None. Calcifications: No suspicious calcifications. Asymmetric density: None. Skin thickening: None. Axillary adenopathy: None. IMPRESSION: No mammographic evidence of malignancy. Annual screening is recommended unless otherwise clinically indicated. No suspicious mass. ASSESSMENT: BI-RADS Category 1: Negative.
== END 2024-11-12 23:59 | disposition home or self-care (01) ==
LOC: RAD 08:24
PROVIDERS: PCP Internal Medicine; Visit Provider Internal Medicine
DX: Z12.31 Encounter for screening mammogram for malignant neoplasm of breast (principal)
CPT/HCPCS: 77063; 77067

== ENCOUNTER 2024-12-31 09:00 | Day surgery (SDC) | payer MEDICARE, OTHER, SELFPAY ==
[2024-12-27 12:28] VITALS: BMI 34.0
[2024-12-31 10:19] VITALS: BP 120/49; PULSE 66; RESP 16; TEMP 36.6; O2SAT 94
[2024-12-31] MEDS: TETRACAINE 0.5% OPTH SOL 15ML OP ×3 (10:27→10:28)
[2024-12-31] MEDS: CYCLOPENTOLATE 2% OPHTH SOLN 2ML BOTTLE OP ×3 (10:28)
[2024-12-31] MEDS: PHENYLEPHRINE 2.5% OPHTH SOLN 2ML OP ×3 (10:29)
[2024-12-31] MEDS: SODIUM CHLORIDE 0.9% 10ML FLUSH SYRINGE 10 ML IV (10:59)
[2024-12-31] MEDS: MIDAZOLAM 2MG/2ML VIAL 1 MG IV (10:59)
[2024-12-31] MEDS: TOBRAMYCIN/DEX OPTH SUSP 2.5ML OP (11:06)
[2024-12-31] MEDS: TIMOLOL 0.5% OPTH SOLN 5ML OP (11:06)
[2024-12-31] MEDS: LIDOCAINE 1% PF 2ML AMPULE 2 ML IJ (11:06)
[2024-12-31 11:27] VITALS: BP 116/76; PULSE 72; RESP 16; TEMP 36.4; O2SAT 97
--- NOTE | 2024-12-31 11:44 | HMH.PROCNOTE ---
[facility] Procedure Note Date: 12/31/24 Time: 11:44 Procedure Note:: Preoperative Diagnosis: Cataract combined NS Cortical Complex [Left] Eye Postop diagnosis: same Operation: Microscopic phacoemulsification with intraocular lens implant [Left] Eye Specimen: None Blood Loss: None The patient was examined in the office with a complaint of poor vision in the [left] eye. The patient reports that this interferes with ADLs such as reading, watching TV and/or driving or the vision is like looking through a foggy haze and is very troubling. The patient was examined and found to have a visually significant cataract with best corrected vision of [20/400] by refraction and/or glare testing. Treatment options, risks and benefits were explained and the patient elected to have cataract surgery in an attempt to improve their vision. The patient had the eye anesthetized with topical tetracaine, the eye ways prepped and draped in the usual fashion for cataract surgery. A paracentesis and a temporal keratotomy were made. 0.2cc of 1% lidocaine PF was placed into the anterior chamber. And aqueous/viscoelastic exchange was done and a 360 degree capsulorexis was performed. Through hydrodissection and delineation with BSS on a cannula was done. The lens nucleus was phecoemulsified with CDE of [5.25]. Residual cortical material was removed using automated I&A The capsular bag was deepened with viscoelastica and a PCIOL was placed in the capsular bag with good centration and stability. Residual viscoelastic was removed using automated I&A. The keratotomy incision was hydrated with BSS on a cannula. The wound were checked and found to be water tight. IOP was checked digitally and adjusted as needed so as not to be too high. 1 drop of timolol 0.5%, ofloxacin, prednisolone acetate and ketorolac was instilled and eye shield taped over the eye. The patient was taken to recovery in good condition and will be seen postoperatively.
== END 2024-12-31 11:28 | disposition home or self-care (01) ==
PROVIDERS: PCP Internal Medicine; Visit Provider Ophthalmology
PROC: (CPT 66984; principal; 2024-12-31 11:30)
DX: H25.012 Cortical age-related cataract, left eye (principal)
CPT/HCPCS: 66984; J2250

== ENCOUNTER 2025-01-14 08:08 | Day surgery (SDC) | payer MEDICARE, OTHER, SELFPAY ==
--- NOTE | 2025-01-08 11:19 | SUR.PREOP ---
left message with callback info
[2025-01-08 12:33] VITALS: BMI 34.9
[2025-01-14] MEDS: TETRACAINE 0.5% OPTH SOL 15ML OP ×3 (09:15→09:25)
[2025-01-14] MEDS: CYCLOPENTOLATE 2% OPHTH SOLN 2ML BOTTLE OP ×3 (09:15→09:25)
[2025-01-14] MEDS: PHENYLEPHRINE 2.5% OPHTH SOLN 2ML OP ×3 (09:15→09:25)
[2025-01-14 09:20] VITALS: BP 137/77; PULSE 59; RESP 16; TEMP 36.3; O2SAT 94
[2025-01-14 09:50] VITALS: BP 126/70; PULSE 57; RESP 16; O2SAT 93
[2025-01-14] MEDS: MIDAZOLAM 2MG/2ML VIAL 1 MG IV (09:50)
[2025-01-14] MEDS: SODIUM CHLORIDE 0.9% 10ML FLUSH SYRINGE 10 ML IV (09:54)
[2025-01-14 09:55] VITALS: BP 122/70; PULSE 59; RESP 16; O2SAT 94
[2025-01-14] MEDS: LIDOCAINE 1% PF 2ML AMPULE 2 ML IJ (09:55)
[2025-01-14] MEDS: TIMOLOL 0.5% OPTH SOLN 5ML OP (09:55)
[2025-01-14] MEDS: TOBRAMYCIN/DEX OPTH SUSP 2.5ML OP (09:56)
[2025-01-14 10:00] VITALS: BP 120/71; PULSE 60; RESP 16; O2SAT 94
[2025-01-14 10:05] VITALS: BP 118/70; PULSE 66; RESP 16; O2SAT 94
[2025-01-14 10:07] VITALS: BP 133/72; PULSE 58; RESP 18; TEMP 36.6; O2SAT 94
--- NOTE | 2025-01-14 11:49 | P.PCN_ITS ---
[facility] Procedure Note Date: 01/14/25 Time: 11:49 Procedure Note:: Preoperative Diagnosis: Cataract combined NS Cortical Complex [Right] Eye Postop diagnosis: same Operation: Microscopic phacoemulsification with intraocular lens implant [Right] Eye Specimen: None Blood Loss: None The patient was examined in the office with a complaint of poor vision in the [right] eye. The patient reports that this interferes with ADLs such as reading, watching TV and/or driving or the vision is like looking through a foggy haze and is very troubling. The patient was examined and found to have a visually significant cataract with best corrected vision of [20/400] by refraction and/or glare testing. Treatment options, risks and benefits were explained and the patient elected to have cataract surgery in an attempt to improve their vision. The patient had the eye anesthetized with topical tetracaine, the eye ways prepped and draped in the usual fashion for cataract surgery. A paracentesis and a temporal keratotomy were made. 0.2cc of 1% lidocaine PF was placed into the anterior chamber. And aqueous/viscoelastic exchange was done and a 360 degree capsulorexis was performed. Through hydrodissection and delineation with BSS on a cannula was done. The lens nucleus was phecoemulsified with CDE of [7.24]. Residual cortical material was removed using automated I&A The capsular bag was deepened with viscoelastica and a PCIOL was placed in the capsular bag with good centration and stability. Residual viscoelastic was removed using automated I&A. The keratotomy incision was hydrated with BSS on a cannula. The wound were checked and found to be water tight. IOP was checked digitally and adjusted as needed so as not to be too high. 1 drop of timolol 0.5%, ofloxacin, prednisolone acetate and ketorolac was instilled and eye shield taped over the eye. The patient was taken to recovery in good condition and will be seen postoperatively.
== END 2025-01-14 10:34 | disposition home or self-care (01) ==
PROVIDERS: PCP Internal Medicine; Visit Provider Ophthalmology
PROC: (CPT 66984; principal; 2025-01-14 10:00)
DX: H25.011 Cortical age-related cataract, right eye (principal)
CPT/HCPCS: 66984; J2250; V2632

== ENCOUNTER 2025-01-21 15:30 | Outpatient (CLI) | payer MEDICARE, OTHER, SELFPAY ==
[2025-01-21 19:16] LABS: Alanine Aminotransferase 37 U/L (12-78); Albumin Level 3.9 g/dl (3.5-5.0); Albumin/Globulin Ratio 1.2 (1.1-1.8); Alkaline Phosphatase 125 U/L (38-126); Anion Gap 10.6 mEq/L (5-15); Aspartate Amino Transferase 35 U/L (14-36); Bilirubin,Total 1.3 mg/dl (0.2-1.3); Blood Urea Nitrogen 13 mg/dl (7-17); Carbon Dioxide 31 mmol/L (22.0-30.0); Chloride 100 mmol/L (98-107); Chol/HDL Ratio 2.8 (1-3.5); Cholesterol 151 mg/dl (140-200); Estimated Glomerular Filt Rate 62 ml/min (>60); GFR (African American) 74 ML/MIN (>60); Globulin 3.2 g/dL (1.3-3.2); Glucose 84 mg/dl (74-100); HDL Cholesterol 53 mg/dl (40-60); Potassium 3.6 mmoL/L (3.5-5.1); Sodium 138 mmol/L (136-145); Total Protein,Serum 7.1 g/dl (6.3-8.2); Triglycerides 94 mg/dl (30-150); VLDL Cholesterol 19 mg/dL (0-40)
[2025-01-21 19:27] LABS: Direct LDL Cholesterol 68.46 mg/dL (100-129)
[2025-01-21 19:45] LABS: Thyroid Stimulating Hormone 0.68 uIU/mL (0.465-4.68)
== END 2025-01-21 23:59 | disposition home or self-care (01) ==
LOC: LAB.DROPOF 01-22 11:09
PROVIDERS: PCP Internal Medicine; Visit Provider Internal Medicine
DX: E78.5 Hyperlipidemia, unspecified (principal); E11.69 Type 2 diabetes mellitus with other specified complication; I10 Essential (primary) hypertension; E03.9 Hypothyroidism, unspecified
CPT/HCPCS: 80053; 80061; 83036; 84443

== ENCOUNTER 2025-05-01 12:49 | Outpatient (CLI) | payer MEDICARE, OTHER, SELFPAY ==
--- OUTSIDE RECORDS SUMMARY | 2025-05-01 12:51 | XMS_ITS | Referral Summary ---
Author Organization [email or web address] ([place], [place], [place], [place]) Address [address] [place] [address] Care Team Providers Care Showroom Manager Name Role Phone Jesus Pollack MD Primary Care Provider [phone] Allergies Active Allergy Reactions Criticality Noted Date Comments Apple 04/13/2021 Other reaction(s): HIVES, RESP. Banana 04/13/2021 Other reaction(s): I-HIVES,RESP Coconut 03/29/2019 Other reaction(s): Hives, I-HIVES, RESP, Swelling Oats (Candy) 03/29/2019 Other reaction(s): I-HIVES,RESP Pecan Extract 03/29/2019 Other reaction(s): I-HIVES,RESP Pineapple 04/13/2021 Other reaction(s): Hives, I-HIVES,RESP., Swelling Sulfa (Sulfonamide Antibiotics) 04/13/2021 Other reaction(s): NA-NAUSEA/VOMITING Tree Nuts 08/09/2023 Other reaction(s): Hives, Swelling 1walnuts,pecans [place] 04/13/2021 Other reaction(s): I-HIVES,RESP. Medications levothyroxine (SYNTHROID, LEVOTHROID) 88 MCG tabletIndication s:Health care maintenance Take 1 tablet (88 mcg total) by mouth Every morning on an empty stomach. Active potassium chloride (KLOR-CON-M) 10 MEQ CR tabletIndication s:Health care maintenance Take 1 tablet (10 mEq total) by mouth 2 (two) times daily. Active atorvastatin (LIPITOR) 20 MG tabletIndication s:Health care maintenance Take 1 tablet (20 mg total) by mouth daily. Active triamterene-hydr oCHLOROthiazide (DYAZIDE) 37.5-25 mg per capsuleIndicatio ns:Healthcare maintenance Take 1 capsule by mouth every morning. Active omeprazole (PriLOSEC) 20 MG capsuleIndicatio ns:Healthcare maintenance Take 1 capsule (20 mg total) by mouth daily. Active aspirin 81 MG EC tabletIndication s:Healthcare maintenance Take 1 tablet (81 mg total) by mouth daily. Active lisinopriL (PRINIVIL,ZESTRI L) 20 MG tablet Take 1 tablet (20 mg total) by mouth daily. 08/15/2023 Active Active Problems Problem Noted Date Diagnosed Date Hearing loss 08/09/2023 Overview (08/09/2023): 1bilateral hearing aids High blood pressure 08/09/2023 Hyperlipidemia 08/09/2023 Thyroid disease 08/09/2023 Social History Tobacco Use Types Packs/Day Years Used Date Smoking Tobacco: Never Smokeless Tobacco: Never Alcohol Use Standard Drinks/Week Comments Never 0 (1 standard drink = 0.6 oz pur e alcohol) Food Insecurity Answer Date Recorded Food run out past 12 months Not on file 10/09 Food did not last past 12 months Not on file 10/20/2023 Employment Answer Date Recorded Help finding and keeping a job Not on file 0 10/20/2023 Family and Community Support Answer Chintan e Recorded Help with Day to Day Activities Not on file 10/20/2023 Feeling Lonely or Isolated Not on file 10/20 Educational Attainment Answer Date Carlos rded Speak language other than Japanese at home Not on file 10/20/2023 Want help with school or training Not on file 10/20/2023 Substance Use Answer Date Recorded Used prescription meds for non-medical reasons N ot on file 10/20/2023 Used illegal drugs past 12 months Not on file 10/20/2023 Comments Unknown Sex and Gender Information Value Date Recorded Sex Assigned at Female 04/07/2022 2:48 PM CDT Legal Sex Female 7:10 PM CDT Gender Identity Female 04/07/2022 2:48 PM CDT Sexual Orientation Not on file Last Filed Vital Signs Vital Sign Reading Time Taken Comments Blood Pressure 107/73 09/14/2023 9:19 AM EST Pulse 64 09/14/2023 9:19 AM EST Temperature - - Respiratory Rate - - Oxygen Saturation 94% 09/14/2023 9:19 AM EST Inhaled Oxygen Concentration - - Weight 100.2 kg (221 lb) 09/14/2023 9:19 AM EST Height 165.1 cm (5' 5 ) 09/14/2023 9:19 AM EST Body Mass Index 36.78 09/14/2023 9:19 AM EST Plan of Treatment Not on file Insurance [place] [id number] MEDICARE PART A B Care Teams Showroom Manager Relationship Specialty Start Date End Date Jesus Pollack MD [address] [place] [phone] PCP - General General Internal Medicine 07/12/23
--- OUTSIDE RECORDS SUMMARY | 2025-05-01 12:51 | XMS_ITS | Clinical Summary ---
Author Organization [employer] ([place], [place], [place], [place]) Address [address] [place] [address] Care Team Providers Care Telecommunications Professional Name Role Phone Jesus Pollack MD Primary Care Provider [phone] Allergies Active Allergy Reactions Criticality Noted Date Comments Apple 04/13/2021 Other reaction(s): HIVES, RESP. Banana 04/13/2021 Other reaction(s): I-HIVES,RESP Coconut 03/29/2019 Other reaction(s): Hives, I-HIVES, RESP, Swelling Oats (Candy) 03/29/2019 Other reaction(s): I-HIVES,RESP Pecan Extract 03/29/2019 Other reaction(s): I-HIVES,RESP Pineapple 04/13/2021 Other reaction(s): Hives, I-HIVES,RESP., Swelling Sulfa (Sulfonamide Antibiotics) 04/13/2021 Other reaction(s): NA-NAUSEA/VOMITING Tree Nuts 08/09/2023 Other reaction(s): Hives, Swelling 1walnuts,pecans [place] 04/13/2021 Other reaction(s): I-HIVES,RESP. Medications levothyroxine (SYNTHROID, [...] pressure 08/09/2023 Hyperlipidemia 08/09/2023 Thyroid disease 08/09/2023 Family History Medical History Relation Name Comments Heart attack Father open heart sx Hypertension Father Heart attack Maternal Grandfather Heart failure Maternal Grandfather Heart attack Maternal Grandmother Heart attack Mother Heart failure Mother Hypertension Mother Rheumatic fever Mother Relation Name Status Comments Father Maternal Grandfather Maternal Grandmother Mother Social History Tobacco Use Types Packs/Day Years [...] Date Carlos rded Speak language other than [place]se at home Not on file 10/20/2023 Want [...] 09/14/2023 9:19 AM EST Plan of Treatment Health Maintenance Due Date Last Done Comments CT Colonography 1952 Colonoscopy 1952 Colorectal Cancer Screening 1952 DXA SCAN 1952 FOBT/FIT 1952 Fit-DNA (Cologuard) 1952 Sigmoidoscopy 1952 Depression Screening (12+) 1964 Hepatitis C Screening 1970 Breast Cancer Screening 1992 Shingles Vaccine (Zoster) (1 of 2) 2002 Respiratory Syncytial Virus (RSV) Adult or (1 - Risk 60-74 years 1-dose series) 2012 Medicare Initial AWV [id number] 08/10/2018 COVID-19 VACCINE ( season) 2024 06/22/2022, 08/11/2021, 12/16/2020 Tobacco Cessation Counseling and Screening (12+) 09/14/2024 09/14/2023 Falls Risk Screening 10/09/2024 Influenza Vaccine (#1) 2025 DTAP/TDAP/TD VACCINES (2 - T d or Tdap) 06/29/2027 06/29/2017 Pneumococcal 50+ years Completed 09/17/2020, 2018 Insurance [place] [place] [id number] MEDICARE PART A B Care Teams Telecommunications Professional Relationship Specialty Start Date End Date Jesus Pollack MD [address] [place] [phone] PCP - General General Internal Medicine 07/12/23
[2025-05-01] MEDS: ALBUTEROL 0.083% 2.5 MG/3 ML NEB IH (14:19)
== END 2025-05-01 23:59 | disposition home or self-care (01) ==
LOC: RT 12:49
PROVIDERS: PCP Internal Medicine; Visit Provider Internal Medicine Pulmonary Disease
DX: R06.02 Shortness of breath (principal)
CPT/HCPCS: 94060; 94618; 94726; 94729

== ENCOUNTER 2025-07-30 08:31 | Outpatient (CLI) | payer MEDICARE, OTHER, SELFPAY ==
[2025-07-30 13:21] LABS: Hematocrit 44.8 % (37.0-47.0); Hemoglobin 14.7 g/dL (12.2-16.2); Immature Granulocytes % 0.4 %; Mean Corpuscular HGB Conc 32.8 g/dL (31.8-35.4); Mean Corpuscular Hemoglobin 28.3 pg (27.0-31.2); Mean Corpuscular Volume 86.2 fl (81-99); Nucleated Red Blood Cells % 0 %; Platelet Count 246 K/mm3 (142-424); Red Blood Count 5.20 M/mm3 (4.20-5.40); Red Cell Distribution Width-SD 39.1 fL; White Blood Count 6.8 K/mm3 (4.8-10.8)
[2025-07-30 13:43] LABS: Alanine Aminotransferase 44 U/L (12-78); Albumin Level 3.9 g/dl (3.5-5.0); Albumin/Globulin Ratio 1.4 (1.1-1.8); Alkaline Phosphatase 121 U/L (38-126); Anion Gap 11.7 mEq/L (5-15); Aspartate Amino Transferase 40 U/L (14-36); Bilirubin,Total 1.3 mg/dl (0.2-1.3); Blood Urea Nitrogen 17 mg/dl (7-17); Calcium 9.5 mg/dl (8.4-10.2); Carbon Dioxide 29 mmol/L (22.0-30.0); Chloride 101 mmol/L (98-107); Cholesterol 188 mg/dl (140-200); Creatinine,Serum 1.00 mg/dl (0.52-1.04); Estimated Glomerular Filt Rate 55 ml/min (>60); GFR (African American) 66 ML/MIN (>60); Globulin 2.8 g/dL (1.3-3.2); Glucose 112 mg/dl (74-100); HDL Cholesterol 54 mg/dl (40-60); Potassium 3.7 mmoL/L (3.5-5.1); Sodium 138 mmol/L (136-145); Total Protein,Serum 6.7 g/dl (6.3-8.2); Triglycerides 107 mg/dl (30-150)
[2025-07-30 14:15] LABS: Thyroid Stimulating Hormone 6.12 uIU/mL (0.465-4.68)
[2025-07-30 14:30] LABS: Hemoglobin A1C 5.8 % (4.0-6.0)
== END 2025-07-30 23:59 ==
LOC: LAB.DROPOF 08-01 08:33
PROVIDERS: PCP Internal Medicine; Visit Provider Internal Medicine
DX: E03.9 Hypothyroidism, unspecified (principal); E11.69 Type 2 diabetes mellitus with other specified complication; E78.5 Hyperlipidemia, unspecified; I10 Essential (primary) hypertension
CPT/HCPCS: 80053; 80061; 83036; 84443; 85025